=== PATIENT | male | born 1930 | race Caucasian/White ===

== ENCOUNTER 2018-12-28 18:33 | Emergency (ER) | payer MEDICARE, MEDICAID ==
[2018-12-28 18:53] VITALS: BP 172/86
--- NOTE | 2018-12-28 19:04 | EDM.PDOC ---
ED HPI GENERAL MEDICAL PROBLEM - General Chief Complaint: General Stated Complaint: ILNESS Time Seen by Provider: 12/28/18 19:04 Source of Information: Reports: Patient, EMS, Family History Limitations: Reports: No Limitations - History of Present Illness INITIAL COMMENTS - FREE TEXT/NARRATIVE: 88-year-old male, drinks frequently had several drinks at the [employer] today then was walking his dog and fell. He doesn't remember if he stumbled or got dizzy. He was having difficulty getting up so his neighbors called the ambulance and they brought him in. He now feels fine he wants to go home. He did not get injured when he fell. He does have a pacemaker that appears to be working appropriately. No fevers or chills, no nausea or vomiting. Onset: Sudden Duration: Hour(s): (Within the last hour) Associated Symptoms: Denies: Chest Pain, Cough, Fever/Chills, Nausea/Vomiting, Shortness of Breath - Related Data Allergies Allergy/AdvReac Type Severity Reaction Status Date / Time No Known Allergies Allergy Verified 04/17/16 17:18 Home Meds: Home Meds Aspirin [Halfprin] 81 mg PO DAILY 03/11/16 [History] Omeprazole 20 mg PO DAILY 03/11/16 [History] atorvaSTATin [Lipitor] 10 mg PO BEDTIME #30 tablet 03/12/16 [Rx] Amiodarone HCl [Pacerone] 200 mg PO DAILY 04/17/16 [History] Apixaban [Eliquis] 2.5 mg PO BID 04/17/16 [History] Clopidogrel [Plavix] 75 mg PO DAILY 04/17/16 [History] Cyanocobalamin (Vitamin B-12) [B-12] 1,000 mcg PO DAILY 04/17/16 [History] Nitroglycerin [IJP: Nitroglycerin] 1 tab SL ASDIRECTED 04/17/16 [History] Metoprolol Tartrate [Lopressor] 25 mg PO BID 03/31/18 [History] Past Medical History HEENT History: Reports: Hard of Hearing, Impaired Vision Other HEENT History: poor dentition Cardiovascular History: Reports: CAD, Cardiomyopathy, Heart Failure, Other (See Below) Other Cardiovascular History: Atrila flutter with rapid ventricular respnse. Vtac. Nstemi Gastrointestinal History: Reports: GERD Genitourinary History: Reports: Renal Disease Other Genitourinary History: kidney disease Psychiatric History: Reports: Anxiety - Infectious Disease History Infectious Disease History: Reports: Chicken Pox, Measles, Mumps - Past Surgical History Cardiovascular Surgical History: Reports: AICD, Carotid Stents Social & Family History - Caffeine Use Caffeine Use: Reports: None ED ROS GENERAL - Review of Systems Review Of Systems: See Below Constitutional: Denies: Fever, Chills, Malaise HEENT: Reports: No Symptoms Respiratory: Denies: Shortness of Breath Cardiovascular: Denies: Chest Pain GI/Abdominal: Denies: Abdominal Pain, Nausea, Vomiting : Reports: No Symptoms Skin: Reports: Other (Some bruising on his left elbow from a previous fall) ED EXAM, GENERAL - Physical Exam Exam: See Below Exam Limited By: No Limitations General Appearance: Alert, No Apparent Distress Eye Exam: Bilateral Eye: EOMI Head: Atraumatic Neck: Supple, Non-Tender Respiratory/Chest: No Respiratory Distress, Lungs Clear Cardiovascular: Regular Rate, Rhythm GI/Abdominal: Soft, Non-Tender Extremities: Normal Inspection, Other (Good strength of his extremities, he can lift both legs up against gravity and hold them in the air for several seconds, good grasp strength bilaterally). No: Pedal Edema Neurological: Alert, Oriented, Other (Slight slurring of speech possibly due to alcohol) Psychiatric: Normal Affect, Normal Mood Course - Vital Signs Last Recorded V/S: Last Vital Signs Temp 97 F 12/28/18 18:52 Pulse 80 12/28/18 18:52 Resp 18 12/28/18 18:52 BP 172/86 H 12/28/18 18:52 Pulse Ox 97 12/28/18 18:52 - Orders/Labs/Meds Labs: Laboratory Tests 12/28/18 12/28/18 12/28/18 Range/Units 19:03 19:03 19:03 WBC 4.1 L (4.5-11.0) K/uL RBC 3.36 L (4.30-5.90) M/uL Hgb 12.2 (12.0-15.0) g/dL Hct 36.7 L (40.0-54.0) % MCV 109 H (80-98) fL MCH 36 H (27-31) pg MCHC 33 (32-36) % Plt Count 145 L (150-400) K/uL Add Manual Diff Yes Neutrophils % (Manual) 54 (36-66) % Band Neutrophils % 3 L (5-11) % Lymphocytes % (Manual) 26 (24-44) % Monocytes % (Manual) 13 H (2-6) % Eosinophils % (Manual) 2 (2-4) % Basophils % (Manual) 2 H (0-1) % Polychromasia Sodium 135 L (140-148) mmol/L Potassium 3.6 (3.6-5.2) mmol/L Chloride 101 (100-108) mmol/L Carbon Dioxide 21 (21-32) mmol/L Anion Gap 16.6 H (5.0-14.0) mmol/L BUN 15 (7-18) mg/dL Creatinine 1.7 H (0.8-1.3) mg/dL Est Cr Clr Drug Dosing 34.02 mL/min Estimated GFR (MDRD) 38 L (>60) Glucose 91 (74-106) mg/dL Calcium 8.5 (8.5-10.1) mg/dL Total Bilirubin 0.5 (0.2-1.0) mg/dL AST 28 (15-37) U/L ALT 17 (12-78) U/L Alkaline Phosphatase 93 (46-116) U/L Troponin I < 0.017 (0.000-0.056) ng/mL Total Protein 6.7 (6.4-8.2) g/dL Albumin 3.5 (3.4-5.0) g/dL Globulin 3.2 (2.3-3.5) g/dL Albumin/Globulin Ratio 1.1 L (1.2-2.2) Ethyl Alcohol 281 mg/dL - Re-Assessments/Exams Free Text/Narrative Re-Assessment/Exam: 12/28/18 19:19 CBC CMP and EtOH were obtained. No imaging necessary. 12/28/18 19:52 EtOH was 0.28, troponin 0 and the rest of his labs generally reassuring. The patient was very talkative and had no complaints and was anxious to go home, the family is accepting of this. He wants no help, he does not want to stop drinking and he plans to continue. Departure - Departure Time of Disposition: 20:19 Disposition: Home, Self-Care 01 Clinical Impression: Alcohol intoxication Qualifiers: Complication of substance-induced condition: uncomplicated Qualified Code(s): F10.920 - Alcohol use, unspecified with intoxication, uncomplicated - Discharge Information Instructions: Alcohol Intoxication, [id number] Referrals: PCP,None [Primary Care Provider] - Forms: ED Department Discharge Care Plan Goals: Rest tonight, no further alcohol this evening and try not to consume as much alcohol at a time in the future or you may fall again and hurt yourself.
== END 2018-12-28 20:19 | disposition home or self-care (01) ==
LOC: JP.ED 18:33
DX: F10.920 Alcohol use, unspecified with intoxication, uncomplicated (principal); I25.10 Atherosclerotic heart disease of native coronary artery without angina pectoris; I50.9 Heart failure, unspecified; K21.9 Gastro-esophageal reflux disease without esophagitis; F41.9 Anxiety disorder, unspecified; Y90.8 Blood alcohol level of 240 mg/100 ml or more; Z79.82 Long term (current) use of aspirin; Z79.899 Other long term (current) drug therapy; Z79.01 Long term (current) use of anticoagulants
CPT/HCPCS: 36415; 80053; 84484; 85025; 99283; G0480

== ENCOUNTER 2019-06-28 02:24 | Inpatient (IN) | payer MEDICARE, MEDICAID ==
--- NOTE | 2019-06-28 03:17 | CRLCT ---
INDICATION: Seizure TECHNIQUE: Head CT without contrast. COMPARISON: June 11, 2019 FINDINGS: CSF spaces: Within normal limits for age. Brain parenchyma: There are nonspecific low attenuation white matter changes consistent with chronic microvascular disease. No sign of mass, hemorrhage, or midline shift. Skull base and calvarium: Mucosal thickening of the left maxillary sinus. The mastoid air cells demonstrate no acute or significant findings. The visualized orbits are grossly unremarkable. No skull fractures. There is intracranial atherosclerosis. IMPRESSION: 1. No acute findings. 2. Nonspecific white matter disease, typical of chronic microvascular disease. Please note that all CT scans at this facility use dose modulation, iterative reconstruction, and/or weight-based dosing when appropriate to reduce radiation dose to as low as reasonably achievable. Dictated by Slime Meade MD @ Jun 28 2019 3:16AM Signed by Dr. Slime Meade @ Jun 28 2019 3:16AM
--- NOTE | 2019-06-28 03:23 | EDM.PDOC ---
ED HPI GENERAL MEDICAL PROBLEM - General Chief Complaint: Neurological Problem Stated Complaint: MEDICAL [facility]IA [facility] Time Seen by Provider: 06/28/19 03:17 Source of Information: Reports: EMS, Other (assisted leaving ) History Limitations: Reports: Altered Mental Status - History of Present Illness INITIAL COMMENTS - FREE TEXT/NARRATIVE: 88 years old male patient with history of hypertension, coronary artery disease , atrial flutter with RVR, CHF, V. tach, MRI, chronic kidney disease, hyperlipidemia brought in by ambulance from his assisted living facility after he had multiple seizures. History collected from EMS and assisted living staff and his daughter. According to his daughter and assisted living he started having seizure in February of this year. He is not in any medication for it. They were told it has to do something with his pacemaker. Tonight he had almost 7 seizure starting at 1 AM. He sure lasted from 1-2 minutes. 2-4 minutes apart. He vomited once. Loss control of urine and stool. Was given 0.5 mg oral Ativan and assisted living. Then on EMS arrived he was given 10 mg IM of Versed. His O2 sats was 50% on room air and was started on 4 L oxygen to keep his sats remained 90. He dni, DNR. No report of any fall or head injury. No report of any fever or cough. No chest pain or shortness breath. Treatments TRASH COLLECTOR: Reports: EKG, IV/IO, Other Medication(s), Oxygen, See EMS Report Other Treatments TRASH COLLECTOR: IM versed - Related Data Allergies Allergy/AdvReac Type Severity Reaction Status Date / Time No Known Allergies Allergy Verified 06/28/19 02:33 Home Meds: Home Meds atorvaSTATin [Lipitor] 10 mg PO BEDTIME #30 tablet 03/12/16 [Rx] Apixaban [Eliquis] 2.5 mg PO BID 04/17/16 [History] Nitroglycerin [IJP: Nitroglycerin] 1 tab SL ASDIRECTED 04/17/16 [History] Metoprolol Tartrate [Lopressor] 25 mg PO BID 03/31/18 [History] Escitalopram [Lexapro] 10 mg PO DAILY 06/28/19 [History] LORazepam 1 tab PO BID PRN 06/28/19 [History] Past Medical History HEENT History: Reports: Hard of Hearing, Impaired Vision Other HEENT History: poor dentition Cardiovascular History: Reports: Afib, Angina, CAD, Cardiomyopathy, Heart Failure, Hypertension, NM, Pacemaker, Other (See Below) Other Cardiovascular History: Atrila flutter with rapid ventricular respnse. Vtac. Nstemi Gastrointestinal History: Reports: GERD Genitourinary History: Reports: Chronic Renal Insuffiency, Renal Disease Other Genitourinary History: kidney disease Psychiatric History: Reports: Anxiety Hematologic History: Reports: Anticoagulation Therapy - Infectious Disease History Infectious Disease History: Reports: Chicken Pox, Measles, Mumps - Past Surgical History Cardiovascular Surgical History: Reports: AICD, Coronary Artery Stent, Pacer Social & Family History - Tobacco Use Smoking Status *Q: Unknown Ever Smoked - Caffeine Use Caffeine Use: Reports: None ED ROS GENERAL - Review of Systems Review Of Systems: Unable To Obtain Reason Not Obtained: Unresponsive, altered mental status - Physical Exam Exam: See Below Exam Limited By: Altered Mental Status General Appearance: No Apparent Distress, Other (Post ictal, unresponsive) Ears: Normal External Exam, Normal Canal, Hearing Grossly Normal, Normal TMs Nose: Normal Inspection, Normal Mucosa, No Blood Throat/Mouth: Normal Inspection, Normal Lips, Normal Gums, Normal Oropharynx, No Airway Compromise Head Exam: Atraumatic, Normocephalic Neck: Normal Inspection, Supple, Non-Tender, Full Range of Motion Respiratory/Chest: No Respiratory Distress, Lungs Clear, Normal Breath Sounds, No Accessory Muscle Use, Chest Non-Tender Cardiovascular: Normal Peripheral Pulses, Regular Rate, Rhythm, No Edema, No Gallop, No JVD, No Murmur, No Rub GI/Abdominal: Normal Bowel Sounds, Soft, Non-Tender, No Organomegaly, No Distention, No Abnormal Bruit, No Mass Neuro Exam (Abbreviated): Unresponsive Extremities: Normal Inspection, Normal Range of Motion, Non-Tender, No Pedal Edema, Normal Capillary Refill Skin Exam: Warm, Dry, Intact, Normal Color, No Rash Course - Vital Signs Last Recorded V/S: Last Vital Signs Temp 35.8 C 06/28/19 02:27 Pulse 89 06/28/19 04:03 Resp 21 H 06/28/19 03:23 BP 111/61 06/28/19 04:03 Pulse Ox 99 06/28/19 03:23 - Orders/Labs/Meds Orders: Active Orders 24 hr Category Date Time Status EKG Documentation Completion [RC] ASDIRECTED Care 06/28/19 03:16 Active CULTURE BLOOD [BC] Urgent Lab 06/28/19 04:20 Ordered CULTURE BLOOD [BC] Urgent Lab 06/28/19 04:20 Ordered Piperacillin/Tazobactam [Zosyn] 4.5 gm Med 06/28/19 04:22 Ordered Sodium Chloride 0.9% [Normal Saline] 100 ml IV ONETIME Sodium Chloride 0.9% @ 125 MLS/HR (1000ml) Med 06/28/19 04:45 Ordered Sodium Chloride 0.9% [Normal Saline] 1,000 ml IV ASDIRECTED Blood Culture x2 Reflex Set [OM.PC] Urgent Oth 06/28/19 04:20 Ordered EKG 12 Lead [EK] Urgent Ther 06/28/19 03:13 Ordered Medication Orders Piperacillin Sod/Tazobactam (Sod 4.5 gm/ Sodium Chloride) 100 mls @ 100 mls/hr IV ONETIME ONE Stop: 06/28/19 05:21 Sodium Chloride (Normal Saline) 1,000 mls @ 125 mls/hr IV ASDIRECTED [facility] Labs: Laboratory Tests 06/28/19 06/28/19 06/28/19 Range/Units 03:25 03:25 03:25 WBC 11.5 H (4.5-11.0) K/uL RBC 3.13 L (4.30-5.90) M/uL Hgb 9.8 L D (12.0-15.0) g/dL Hct 30.8 L (40.0-54.0) % MCV 98 (80-98) fL MCH 31 (27-31) pg MCHC 32 (32-36) % Plt Count 195 (150-400) K/uL Neut % (Auto) 89 H (36-66) % Lymph % (Auto) 5 L (24-44) % [place] % (Auto) 6 (2-6) % Eos % (Auto) 1 L (2-4) % Baso % (Auto) 0 (0-1) % PT 10.1 (9.5-12.0) sec INR 0.93 (0.80-1.20) Sodium 134 L (140-148) mmol/L Potassium 4.3 (3.6-5.2) mmol/L Chloride 100 (100-108) mmol/L Carbon Dioxide 26 (21-32) mmol/L Anion Gap 12.3 (5.0-14.0) mmol/L BUN 25 H D (7-18) mg/dL Creatinine 1.6 H (0.8-1.3) mg/dL Est Cr Clr Drug Dosing 36.15 mL/min Estimated GFR (MDRD) 41 L (>60) Glucose 156 H (74-106) mg/dL Lactic Acid (0.4-2.0) mmol/L Calcium 8.6 (8.5-10.1) mg/dL Total Bilirubin 0.2 D (0.2-1.0) mg/dL AST 21 (15-37) U/L ALT 19 (12-78) U/L Alkaline Phosphatase 67 (46-116) U/L Ammonia (11-32) mmol/L Troponin I 0.081 H* (0.000-0.056) ng/mL Total Protein 6.3 L (6.4-8.2) g/dL Albumin 3.0 L (3.4-5.0) g/dL Globulin 3.3 (2.3-3.5) g/dL Albumin/Globulin Ratio 0.9 L (1.2-2.2) Urine Color (YELLOW) Urine Appearance (CLEAR) Urine pH (5.0-8.0) Ur Specific [place] (1.008-1.030) Urine Protein (NEGATIVE) mg/dL Urine Glucose (UA) (NEGATIVE) mg/dL Urine Ketones (NEGATIVE) mg/dL Urine Occult Blood (NEGATIVE) Urine Nitrite (NEGATIVE) Urine Bilirubin (NEGATIVE) Urine Urobilinogen (0.2-1.0) EU/dL Ur Leukocyte Esterase (NEGATIVE) Urine RBC (0-5) Urine WBC (0-5) Ur Epithelial Cells Amorphous Sediment Urine Bacteria Urine Mucus Urine Opiates Screen (NEGATIVE) Ur Oxycodone Screen (NEGATIVE) Urine Methadone Screen (NEGATIVE) Ur Propoxyphene Screen (NEGATIVE) Ur Barbiturates Screen (NEGATIVE) Ur Tricyclics Screen (NEGATIVE) Ur Phencyclidine Scrn (NEGATIVE) Ur Amphetamine Screen (NEGATIVE) U Methamphetamines Scrn (NEGATIVE) Urine MDMA Screen (NEGATIVE) U Benzodiazepines Scrn (NEGATIVE) U Cocaine Metab Screen (NEGATIVE) U Marijuana (THC) Screen (NEGATIVE) Ethyl Alcohol mg/dL 06/28/19 06/28/19 06/28/19 Range/Units 03:25 03:25 03:25 WBC (4.5-11.0) K/uL RBC (4.30-5.90) M/uL Hgb (12.0-15.0) g/dL Hct (40.0-54.0) % MCV (80-98) fL MCH (27-31) pg MCHC (32-36) % Plt Count (150-400) K/uL Neut % (Auto) (36-66) % Lymph % (Auto) (24-44) % [place] % (Auto) (2-6) % Eos % (Auto) (2-4) % Baso % (Auto) (0-1) % PT (9.5-12.0) sec INR (0.80-1.20) Sodium (140-148) mmol/L Potassium (3.6-5.2) mmol/L Chloride (100-108) mmol/L Carbon Dioxide (21-32) mmol/L Anion Gap (5.0-14.0) mmol/L BUN (7-18) mg/dL Creatinine (0.8-1.3) mg/dL Est Cr Clr Drug Dosing mL/min Estimated GFR (MDRD) (>60) Glucose (74-106) mg/dL Lactic Acid 2.6 H (0.4-2.0) mmol/L Calcium (8.5-10.1) mg/dL Total Bilirubin (0.2-1.0) mg/dL AST (15-37) U/L ALT (12-78) U/L Alkaline Phosphatase (46-116) U/L Ammonia 8 L (11-32) mmol/L Troponin I (0.000-0.056) ng/mL Total Protein (6.4-8.2) g/dL Albumin (3.4-5.0) g/dL Globulin (2.3-3.5) g/dL Albumin/Globulin Ratio (1.2-2.2) Urine Color (YELLOW) Urine Appearance (CLEAR) Urine pH (5.0-8.0) Ur Specific [place] (1.008-1.030) Urine Protein (NEGATIVE) mg/dL Urine Glucose (UA) (NEGATIVE) mg/dL Urine Ketones (NEGATIVE) mg/dL Urine Occult Blood (NEGATIVE) Urine Nitrite (NEGATIVE) Urine Bilirubin (NEGATIVE) Urine Urobilinogen (0.2-1.0) EU/dL Ur Leukocyte Esterase (NEGATIVE) Urine RBC (0-5) Urine WBC (0-5) Ur Epithelial Cells Amorphous Sediment Urine Bacteria Urine Mucus Urine Opiates Screen (NEGATIVE) Ur Oxycodone Screen (NEGATIVE) Urine Methadone Screen (NEGATIVE) Ur Propoxyphene Screen (NEGATIVE) Ur Barbiturates Screen (NEGATIVE) Ur Tricyclics Screen (NEGATIVE) Ur Phencyclidine Scrn (NEGATIVE) Ur Amphetamine Screen (NEGATIVE) U Methamphetamines Scrn (NEGATIVE) Urine MDMA Screen (NEGATIVE) U Benzodiazepines Scrn (NEGATIVE) U Cocaine Metab Screen (NEGATIVE) U Marijuana (THC) Screen (NEGATIVE) Ethyl Alcohol < 3 mg/dL 06/28/19 06/28/19 Range/Units 03:58 03:58 WBC (4.5-11.0) K/uL RBC (4.30-5.90) M/uL Hgb (12.0-15.0) g/dL Hct (40.0-54.0) % MCV (80-98) fL MCH (27-31) pg MCHC (32-36) % Plt Count (150-400) K/uL Neut % (Auto) (36-66) % Lymph % (Auto) (24-44) % [place] % (Auto) (2-6) % Eos % (Auto) (2-4) % Baso % (Auto) (0-1) % PT (9.5-12.0) sec INR (0.80-1.20) Sodium (140-148) mmol/L Potassium (3.6-5.2) mmol/L Chloride (100-108) mmol/L Carbon Dioxide (21-32) mmol/L Anion Gap (5.0-14.0) mmol/L BUN (7-18) mg/dL Creatinine (0.8-1.3) mg/dL Est Cr Clr Drug Dosing mL/min Estimated GFR (MDRD) (>60) Glucose (74-106) mg/dL Lactic Acid (0.4-2.0) mmol/L Calcium (8.5-10.1) mg/dL Total Bilirubin (0.2-1.0) mg/dL AST (15-37) U/L ALT (12-78) U/L Alkaline Phosphatase (46-116) U/L Ammonia (11-32) mmol/L Troponin I (0.000-0.056) ng/mL Total Protein (6.4-8.2) g/dL Albumin (3.4-5.0) g/dL Globulin (2.3-3.5) g/dL Albumin/Globulin Ratio (1.2-2.2) Urine Color Yellow (YELLOW) Urine Appearance Slightly cloudy A (CLEAR) Urine pH 6.5 (5.0-8.0) Ur Specific [place] 1.015 (1.008-1.030) Urine Protein Trace H (NEGATIVE) mg/dL Urine Glucose (UA) Negative (NEGATIVE) mg/dL Urine Ketones Negative (NEGATIVE) mg/dL Urine Occult Blood Trace-intact H (NEGATIVE) Urine Nitrite Negative (NEGATIVE) Urine Bilirubin Negative (NEGATIVE) Urine Urobilinogen 0.2 (0.2-1.0) EU/dL Ur Leukocyte Esterase Large H (NEGATIVE) Urine RBC 0-5 (0-5) Urine WBC 5-10 H (0-5) Ur Epithelial Cells Rare Amorphous Sediment Not seen Urine Bacteria Few Urine Mucus Not seen Urine Opiates Screen Negative (NEGATIVE) Ur Oxycodone Screen Negative (NEGATIVE) Urine Methadone Screen Negative (NEGATIVE) Ur Propoxyphene Screen Negative (NEGATIVE) Ur Barbiturates Screen Negative (NEGATIVE) Ur Tricyclics Screen Negative (NEGATIVE) Ur Phencyclidine Scrn Negative (NEGATIVE) Ur Amphetamine Screen Negative (NEGATIVE) U Methamphetamines Scrn Negative (NEGATIVE) Urine MDMA Screen Negative (NEGATIVE) U Benzodiazepines Scrn Negative (NEGATIVE) U Cocaine Metab Screen Negative (NEGATIVE) U Marijuana (THC) Screen Negative (NEGATIVE) Ethyl Alcohol mg/dL Meds: Medications Generic Name Dose Route Start Last Admin Trade Name Freq PRN Reason Stop Dose Admin Piperacillin Sod/Tazobactam 100 mls @ 100 mls/hr 06/28/19 04:22 Sod 4.5 gm/ Sodium Chloride IV 06/28/19 05:21 ONETIME ONE Sodium Chloride 1,000 mls @ 125 mls/hr 06/28/19 04:45 Normal Saline IV ASDIRECTED OMARI - Radiology Interpretation Free Text/Narrative:: Patient was seen and examined shortly after arrival. He is currently post ictal , unresponsive. Hemodynamically stable. On oxygen. Sent for stat head CT that came back with no acute abnormalities. EKG shows normal sinus rhythm. No sign of acute ischemia or arrhythmia prolonged QT interval. Lab , imaging reviewed. CT head shows no acute abnormalities. Chest x-ray shows some patchy opacity of the left upper lobe atelectasis versus infiltrate. Elevated white count was left shift. Elevated lactic acid 2.6. Urine shows trace leukocyte esterase and some 5-10 white blood cells. At this point patient was started on normal saline 1 25 mL/h, given 4.5 g of IV Zosyn for possible aspiration pneumonia. Elevated troponin, mildly elevated likely demand ischemia in the setting of acute on chronic kidney injury. No sign of acute arrhythmia or ischemia. No sign of acute coronary syndrome. It is unclear if the patient have underlying seizure disorder or his ICD was firing due to any sort of arrhythmia. Also the patient had pneumonia caused seizure or seizure then vomiting led to aspiration pneumonia. I did consulted with Dr. Leos hospitalist pets salesperson and he accepted admission for further management. Stable for admission. Departure - Departure Time of Disposition: 04:24 Disposition: Admitted As Inpatient 68 Condition: Poor Clinical Impression: Pneumonia, Elevated troponin, Seizure - Discharge Information *PRESCRIPTION DRUG MONITORING PROGRAM REVIEWED*: Not Applicable *COPY OF PRESCRIPTION DRUG MONITORING REPORT IN PATIENT BÁRBARA: Not Applicable Referrals: PCP,None [Primary Care Provider] - Forms: ED Department Discharge - My Orders Last 24 Hours: My Active Orders 06/28/19 03:13 EKG 12 Lead [EK] Urgent 06/28/19 03:16 EKG Documentation Completion [RC] ASDIRECTED 06/28/19 04:20 CULTURE BLOOD [BC] Urgent CULTURE BLOOD [BC] Urgent Blood Culture x2 Reflex Set [OM.PC] Urgent 06/28/19 04:22 Piperacillin/Tazobactam [Zosyn] 4.5 gm Sodium Chloride 0.9% [Normal Saline] 100 ml IV ONETIME 06/28/19 04:45 Sodium Chloride 0.9% @ 125 MLS/HR (1000ml) Sodium Chloride 0.9% [Normal Saline] 1,000 ml IV ASDIRECTED - Assessment/Plan Last 24 Hours: My Active Orders 06/28/19 03:13 EKG 12 Lead [EK] Urgent 06/28/19 03:16 EKG Documentation Completion [RC] ASDIRECTED 06/28/19 04:20 CULTURE BLOOD [BC] Urgent CULTURE BLOOD [BC] Urgent Blood Culture x2 Reflex Set [OM.PC] Urgent 06/28/19 04:22 Piperacillin/Tazobactam [Zosyn] 4.5 gm Sodium Chloride 0.9% [Normal Saline] 100 ml IV ONETIME 06/28/19 04:45 Sodium Chloride 0.9% @ 125 MLS/HR (1000ml) Sodium Chloride 0.9% [Normal Saline] 1,000 ml IV ASDIRECTED
--- NOTE | 2019-06-28 04:19 | CRLCR ---
Indication: Hypoxic Technique: Chest 1 view Comparison: October 02, 2017 Findings/Impression: Stable cardiac size. Left-sided AICD tip projects over the right ventricle. Normal pulmonary vasculature. Faint patchy opacity in the left upper lung may represent atelectasis or infection. No effusion, or pneumothorax. No acute osseous abnormality. Dictated by Slime Meade MD @ Jun 28 2019 4:17AM Signed by Dr. Slime Meade @ Jun 28 2019 4:17AM
[2019-06-28] MEDS ORDERED: Piperacillin/Tazobactam 4.5 GM in Sodium Chloride 0.9% 100 ML IV ONE (04:22)
[2019-06-28] MEDS: Sodium Chloride 0.9% 1,000 ML IV SCH ×4 (04:57→23:23)
[2019-06-28] MEDS ORDERED: LORazepam 0.5 MG Tab PO PRN (05:33)
[2019-06-28] MEDS ORDERED: Piperacillin/Tazobactam 4.5 GM in Sodium Chloride 0.9% 100 ML IV SCH (05:45)
[2019-06-28] MEDS ORDERED: Nitroglycerin 0.4 MG Tab.SL SL SCH (05:45)
[2019-06-28] MEDS ORDERED: Acetaminophen 325 MG Tab PO PRN (08:00)
[2019-06-28] MEDS ORDERED: Albuterol 0.083% 2.5 MG/3 ML Neb Soln NEB PRN (08:01)
[2019-06-28] MEDS: cefTRIAXone 2 GM in Sodium Chloride 0.9% 50 ML IV SCH (08:57)
--- NOTE | 2019-06-28 08:58 | PCM.PN ---
- General Info Date of Service: 06/28/19 Subjective Update: There have been no acute events since the patient was admitted. He remains very lethargic and is not responsive at this time. He is mildly tachycardic but his blood pressure is stable. He has not had any fevers. He is not currently on supplemental oxygen. Troponin level this morning has risen from 0.08 up to 0.2. Functional Status: Reports: Other (lethargic ) - Patient Data Vitals - Most Recent: Last Vital Signs Temp 37.4 C 06/28/19 05:29 Pulse 88 06/28/19 05:29 Resp 20 06/28/19 05:29 BP 121/57 L 06/28/19 05:29 Pulse Ox 95 06/28/19 05:29 Weight - Most Recent: 77.111 kg Lab Results Last 24 Hours: Laboratory Results - last 24 hr 06/28/19 06/28/19 06/28/19 Range/Units 03:25 03:25 03:25 WBC 11.5 H (4.5-11.0) K/uL RBC 3.13 L (4.30-5.90) M/uL Hgb 9.8 L D (12.0-15.0) g/dL Hct 30.8 L (40.0-54.0) % MCV 98 (80-98) fL MCH 31 (27-31) pg MCHC 32 (32-36) % Plt Count 195 (150-400) K/uL Neut % (Auto) 89 H (36-66) % Lymph % (Auto) 5 L (24-44) % [place] % (Auto) 6 (2-6) % Eos % (Auto) 1 L (2-4) % Baso % (Auto) 0 (0-1) % PT 10.1 (9.5-12.0) sec INR 0.93 (0.80-1.20) Sodium 134 L (140-148) mmol/L Potassium 4.3 (3.6-5.2) mmol/L Chloride 100 (100-108) mmol/L Carbon Dioxide 26 (21-32) mmol/L Anion Gap 12.3 (5.0-14.0) mmol/L BUN 25 H D (7-18) mg/dL Creatinine 1.6 H (0.8-1.3) mg/dL Est Cr Clr Drug Dosing 36.15 mL/min Estimated GFR (MDRD) 41 L (>60) Glucose 156 H (74-106) mg/dL Lactic Acid (0.4-2.0) mmol/L Calcium 8.6 (8.5-10.1) mg/dL Total Bilirubin 0.2 D (0.2-1.0) mg/dL AST 21 (15-37) U/L ALT 19 (12-78) U/L Alkaline Phosphatase 67 (46-116) U/L Ammonia (11-32) mmol/L Troponin I 0.081 H* (0.000-0.056) ng/mL Total Protein 6.3 L (6.4-8.2) g/dL Albumin 3.0 L (3.4-5.0) g/dL Globulin 3.3 (2.3-3.5) g/dL Albumin/Globulin Ratio 0.9 L (1.2-2.2) Urine Color (YELLOW) Urine Appearance (CLEAR) Urine pH (5.0-8.0) Ur Specific [place] (1.008-1.030) Urine Protein (NEGATIVE) mg/dL Urine Glucose (UA) (NEGATIVE) mg/dL Urine Ketones (NEGATIVE) mg/dL Urine Occult Blood (NEGATIVE) Urine Nitrite (NEGATIVE) Urine Bilirubin (NEGATIVE) Urine Urobilinogen (0.2-1.0) EU/dL Ur Leukocyte Esterase (NEGATIVE) Urine RBC (0-5) Urine WBC (0-5) Ur Epithelial Cells Amorphous Sediment Urine Bacteria Urine Mucus Urine Opiates Screen (NEGATIVE) Ur Oxycodone Screen (NEGATIVE) Urine Methadone Screen (NEGATIVE) Ur Propoxyphene Screen (NEGATIVE) Ur Barbiturates Screen (NEGATIVE) Ur Tricyclics Screen (NEGATIVE) Ur Phencyclidine Scrn (NEGATIVE) Ur Amphetamine Screen (NEGATIVE) U Methamphetamines Scrn (NEGATIVE) Urine MDMA Screen (NEGATIVE) U Benzodiazepines Scrn (NEGATIVE) U Cocaine Metab Screen (NEGATIVE) U Marijuana (THC) Screen (NEGATIVE) Ethyl Alcohol mg/dL 06/28/19 06/28/19 06/28/19 Range/Units 03:25 03:25 03:25 WBC (4.5-11.0) K/uL RBC (4.30-5.90) M/uL Hgb (12.0-15.0) g/dL Hct (40.0-54.0) % MCV (80-98) fL MCH (27-31) pg MCHC (32-36) % Plt Count (150-400) K/uL Neut % (Auto) (36-66) % Lymph % (Auto) (24-44) % Burnett % (Auto) (2-6) % Eos % (Auto) (2-4) % Baso % (Auto) (0-1) % PT (9.5-12.0) sec INR (0.80-1.20) Sodium (140-148) mmol/L Potassium (3.6-5.2) mmol/L Chloride (100-108) mmol/L Carbon Dioxide (21-32) mmol/L Anion Gap (5.0-14.0) mmol/L BUN (7-18) mg/dL Creatinine (0.8-1.3) mg/dL Est Cr Clr Drug Dosing mL/min Estimated GFR (MDRD) (>60) Glucose (74-106) mg/dL Lactic Acid 2.6 H (0.4-2.0) mmol/L Calcium (8.5-10.1) mg/dL Total Bilirubin (0.2-1.0) mg/dL AST (15-37) U/L ALT (12-78) U/L Alkaline Phosphatase (46-116) U/L Ammonia 8 L (11-32) mmol/L Troponin I (0.000-0.056) ng/mL Total Protein (6.4-8.2) g/dL Albumin (3.4-5.0) g/dL Globulin (2.3-3.5) g/dL Albumin/Globulin Ratio (1.2-2.2) Urine Color (YELLOW) Urine Appearance (CLEAR) Urine pH (5.0-8.0) Ur Specific [place] (1.008-1.030) Urine Protein (NEGATIVE) mg/dL Urine Glucose (UA) (NEGATIVE) mg/dL Urine Ketones (NEGATIVE) mg/dL Urine Occult Blood (NEGATIVE) Urine Nitrite (NEGATIVE) Urine Bilirubin (NEGATIVE) Urine Urobilinogen (0.2-1.0) EU/dL Ur Leukocyte Esterase (NEGATIVE) Urine RBC (0-5) Urine WBC (0-5) Ur Epithelial Cells Amorphous Sediment Urine Bacteria Urine Mucus Urine Opiates Screen (NEGATIVE) Ur Oxycodone Screen (NEGATIVE) Urine Methadone Screen (NEGATIVE) Ur Propoxyphene Screen (NEGATIVE) Ur Barbiturates Screen (NEGATIVE) Ur Tricyclics Screen (NEGATIVE) Ur Phencyclidine Scrn (NEGATIVE) Ur Amphetamine Screen (NEGATIVE) U Methamphetamines Scrn (NEGATIVE) Urine MDMA Screen (NEGATIVE) U Benzodiazepines Scrn (NEGATIVE) U Cocaine Metab Screen (NEGATIVE) U Marijuana (THC) Screen (NEGATIVE) Ethyl Alcohol < 3 mg/dL 06/28/19 06/28/19 Range/Units 03:58 03:58 WBC (4.5-11.0) K/uL RBC (4.30-5.90) M/uL Hgb (12.0-15.0) g/dL Hct (40.0-54.0) % MCV (80-98) fL MCH (27-31) pg MCHC (32-36) % Plt Count (150-400) K/uL Neut % (Auto) (36-66) % Lymph % (Auto) (24-44) % Burnett % (Auto) (2-6) % Eos % (Auto) (2-4) % Baso % (Auto) (0-1) % PT (9.5-12.0) sec INR (0.80-1.20) Sodium (140-148) mmol/L Potassium (3.6-5.2) mmol/L Chloride (100-108) mmol/L Carbon Dioxide (21-32) mmol/L Anion Gap (5.0-14.0) mmol/L BUN (7-18) mg/dL Creatinine (0.8-1.3) mg/dL Est Cr Clr Drug Dosing mL/min Estimated GFR (MDRD) (>60) Glucose (74-106) mg/dL Lactic Acid (0.4-2.0) mmol/L Calcium (8.5-10.1) mg/dL Total Bilirubin (0.2-1.0) mg/dL AST (15-37) U/L ALT (12-78) U/L Alkaline Phosphatase (46-116) U/L Ammonia (11-32) mmol/L Troponin I (0.000-0.056) ng/mL Total Protein (6.4-8.2) g/dL Albumin (3.4-5.0) g/dL Globulin (2.3-3.5) g/dL Albumin/Globulin Ratio (1.2-2.2) Urine Color Yellow (YELLOW) Urine Appearance Slightly cloudy A (CLEAR) Urine pH 6.5 (5.0-8.0) Ur Specific [place] 1.015 (1.008-1.030) Urine Protein Trace H (NEGATIVE) mg/dL Urine Glucose (UA) Negative (NEGATIVE) mg/dL Urine Ketones Negative (NEGATIVE) mg/dL Urine Occult Blood Trace-intact H (NEGATIVE) Urine Nitrite Negative (NEGATIVE) Urine Bilirubin Negative (NEGATIVE) Urine Urobilinogen 0.2 (0.2-1.0) EU/dL Ur Leukocyte Esterase Large H (NEGATIVE) Urine RBC 0-5 (0-5) Urine WBC 5-10 H (0-5) Ur Epithelial Cells Rare Amorphous Sediment Not seen Urine Bacteria Few Urine Mucus Not seen Urine Opiates Screen Negative (NEGATIVE) Ur Oxycodone Screen Negative (NEGATIVE) Urine Methadone Screen Negative (NEGATIVE) Ur Propoxyphene Screen Negative (NEGATIVE) Ur Barbiturates Screen Negative (NEGATIVE) Ur Tricyclics Screen Negative (NEGATIVE) Ur Phencyclidine Scrn Negative (NEGATIVE) Ur Amphetamine Screen Negative (NEGATIVE) U Methamphetamines Scrn Negative (NEGATIVE) Urine MDMA Screen Negative (NEGATIVE) U Benzodiazepines Scrn Negative (NEGATIVE) U Cocaine Metab Screen Negative (NEGATIVE) U Marijuana (THC) Screen Negative (NEGATIVE) Ethyl Alcohol mg/dL Med Orders - Current: Current Medications Acetaminophen (Tylenol) 650 mg PO Q4H PRN PRN Reason: Pain/Fever Albuterol (Proventil Neb Soln) 2.5 mg NEB Q4H PRN PRN Reason: Shortness of Breath Apixaban (Eliquis) 2.5 mg PO BID [facility] Atorvastatin Calcium (Lipitor) 10 mg PO BEDTIME [facility] Escitalopram Oxalate (Lexapro) 10 mg PO DAILY [facility] Sodium Chloride (Normal Saline) 1,000 mls @ 125 mls/hr IV ASDIRECTED [facility] Azithromycin 500 mg/ Sodium (Chloride) 250 mls @ 250 mls/hr IV Q24H [facility] Ceftriaxone Sodium 2 gm/ (Sodium Chloride) 50 mls @ 100 mls/hr IV Q24H [facility] Last Admin: 06/28/19 08:57 Dose: 100 mls/hr Levetiracetam 500 mg/ Sodium (Chloride) 105 mls @ 400 mls/hr IV ONETIME ONE Stop: 06/28/19 09:15 Last Admin: 06/28/19 08:38 Dose: 400 mls/hr Lorazepam (Ativan) 0.5 mg PO BID PRN PRN Reason: Anxiety Lorazepam (Ativan) 1 mg IVPUSH Q4H PRN PRN Reason: Seizures Metoprolol Tartrate (Lopressor) 25 mg PO BID [facility] Nitroglycerin (Nitrostat) 0.4 mg SL ASDIRECTED [facility] Discontinued Medications Piperacillin Sod/Tazobactam (Sod 4.5 gm/ Sodium Chloride) 100 mls @ 100 mls/hr IV ONETIME ONE Stop: 06/28/19 05:21 Last Admin: 06/28/19 05:00 Dose: 100 mls/hr Sodium Chloride (Normal Saline) 1,000 mls @ 125 mls/hr IV ASDIRECTED [facility] Last Admin: 06/28/19 06:27 Dose: 125 mls/hr Piperacillin Sod/Tazobactam (Sod 4.5 gm/ Sodium Chloride) 100 mls @ 100 mls/hr IV Q6H [facility] Last Admin: 06/28/19 06:08 Dose: Not Given Piperacillin/Tazobactam/ (Dextrose 3.375 gm/ Premix) 50 mls @ 100 mls/hr IV Q6H [facility] - Exam Quality Assessment: No: Supplemental Oxygen General: No Acute Distress, Lethargic. No: Alert HEENT: Pupils Equal Lungs: Normal Respiratory Effort, Crackles (left upper lung ) Cardiovascular: Regular Rate, Regular Rhythm, No Murmurs GI/Abdominal Exam: Soft, Non-Tender, No Distention Extremities: No Pedal Edema. No: Increased Warmth Skin: Warm, Dry Psy/Mental Status: No: Alert, Agitated - Problem List Review Problem List Initiated/Reviewed/Updated: Yes - My Orders Last 24 Hours: My Active Orders 06/28/19 08:00 Acetaminophen [Tylenol] 650 mg PO Q4H PRN 06/28/19 08:01 Albuterol [Proventil Neb Soln] 2.5 mg NEB Q4H PRN 06/28/19 08:02 RT Aerosol Therapy [RC] ASDIRECTED 06/28/19 09:00 TROPONIN I [CHEM] Routine cefTRIAXone [Rocephin] 2 gm Sodium Chloride 0.9% [Normal Saline] 50 ml IV Q24H levETIRAcetam [Keppra] 500 mg Sodium Chloride 0.9% [Normal Saline] 100 ml IV ONETIME 06/28/19 10:00 Azithromycin [Zithromax] 500 mg Sodium Chloride 0.9% [Normal Saline] 250 ml IV Q24H - Plan Plan:: ASSESSMENT AND PLAN - Left upper lobe pneumonia, question aspiration-patient was hypoxic on arrival but is now off supplemental oxygen. Chest x-ray did show faint upper lobe opacity. Mild crackles in this area on examination. No fevers. Unclear if this represents a pneumonia that may have triggered the event or was a result of a possible aspiration. -Empiric antibiotic coverage with ceftriaxone and azithromycin -Supplement oxygen if needed Seizures-recent history of seizures and significant seizures overnight. He has not yet received antiepileptic medication. -IV Keppra x1 this morning, plan to continue but will have to readdress whether doses given by mouth or IV this evening Coronary artery disease with previous dysrhythmias-ICD is in place. He had been on amiodarone but this is currently on hold. -Continue beta-esperanza -Continue chronic anticoagulation Stage III chronic kidney disease-creatinine is near baseline. Maintenance issues - - DVT prophylaxis -apixaban - GI prophylaxis -not indicated - Nutrition -n.p.o. until he is more awake and alert - Dumont catheter -not indicated CODE STATUS -DNR/DNI Disposition -I would anticipate discharge back to his assisted living after the hospital stay Mitch Doss M.D.
[2019-06-28] MEDS ORDERED: Piperacillin/Tazobactam/Dext 3.375 GM in Premix Bag 1 BAG IV SCH (09:00)
[2019-06-28] MEDS ORDERED: Metoprolol Tartrate 50 MG Tab PO SCH (09:00)
[2019-06-28] MEDS ORDERED: levETIRAcetam 500 MG in Sodium Chloride 0.9% 100 ML IV ONE (09:00)
[2019-06-28] MEDS: Escitalopram 10 MG Tab PO SCH (09:01)
[2019-06-28] MEDS: Apixaban 2.5 MG Tab PO SCH ×2 (09:01→20:20)
[2019-06-28] MEDS: Azithromycin 500 MG in Sodium Chloride 0.9% 250 ML IV SCH (09:44)
--- NOTE | 2019-06-28 12:16 | HP ---
CHIEF COMPLAINT: Seizure. HISTORY OF PRESENT ILLNESS: An 88-year-old who was admitted to the assisted living in [place], I believe, in March. Apparently, he had some alcohol abuse problems, was not able to take care of himself, has been there since. Apparently, he has had some suspected seizure activity. They thought it maybe secondary to implanted cardiac defibrillator and he has not been on any treatment. Apparently, he had a string of seizures tonight, was given 2 mg IV Versed in the ambulance and it did stop the seizure activity. The EMS did witness the seizure. The patient was evaluated by emergency room physician, not having any further seizure, but was quite obtunded and possibly postictal. A CT scan of the head was unremarkable. EKG showed sinus rhythm. Chest x-ray showed possible infiltrate in the left upper lobe. The patient was started on IV Zosyn. I was asked to admit the patient for further evaluation and treatment. When I arrived, the patient was obtunded and not responding to my verbal cues or touching. PAST MEDICAL HISTORY: 1. History of atrial fibrillation. It sounds like from his old reports that he has had trouble with alcoholism. 2. Essential hypertension. 3. Gastroesophageal reflux disease. 4. Chronic kidney disease. 5. Anxiety. MEDICATIONS: 1. Eliquis 2.5 mg b.i.d. 2. Lipitor 10 mg at bedtime. 3. Lexapro 10 mg daily. 4. Lorazepam 0.5 mg b.i.d. 5. Metoprolol 25 mg b.i.d. 6. Nitroglycerin p.r.n., which I do not know that he has had to take. ALLERGIES: NO KNOWN DRUG ALLERGIES. SOCIAL HISTORY: Apparently, he never smoked. FAMILY HISTORY: From old chart, denied coronary artery disease, otherwise unknown, unable to get from him. REVIEW OF SYSTEMS: Unable to really get any type of history out of him, he is not responding to verbal cues. OBJECTIVE: VITAL SIGNS: Pulse 89 to 103, blood pressure 119/63, now with 145/93, respirations 21 to 22, O2 saturation 99 on currently 1 L. He was in the EMS quite hypoxic with O2 saturations down in the 50% range, was started on 4 L per nasal cannula and did improve his O2 saturation but currently is on 1 L at 99%. GENERAL: The patient obtunded. I am really not able to get any history out of him. HEENT: Unable to look into his mouth. NECK: Supple. No adenopathy, thyromegaly, JVD, or carotid bruits. LUNGS: Coarse bilaterally. HEART: Regular right now. I did not hear any murmurs. ABDOMEN: Soft, did not appear to cause him any tenderness. No mass or organomegaly palpated. EXTREMITIES: The patient had mild edema in his legs. SKIN: Negative. NEUROLOGIC: The patient obtunded, really unable to give much from a neurologic exam. LABORATORY DATA: EKG showed sinus rhythm, ventricular rate of 96 beats per minute. No significant ST-segment elevations or depressions seen. He does have prolonged QT interval. Chest x-ray, possible infiltrate in the left upper lung, could represent atelectasis or infection. A CT scan of his brain showed no acute changes. White count 11.5, hemoglobin 9.8, platelets 195,000 with 89% neutrophils. INR was 0.93. Sodium 134, potassium 4.3, chloride 100, BUN is 25, creatinine 1.6, glucose 156. Lactic acid was elevated at 2.6. Liver functions were normal. Ammonia level was low at 8. Troponin 0.081. Urinalysis showed 5 to 10 white cells, 0 to 5 red cells. Culture is pending. Blood culture is pending. Urine drug screen was negative and alcohol level was negative. ASSESSMENT: 1. Seizure with what sounds like status epilepticus that did respond to the IV Versed. The patient is postictal and obtunded. At this time, we will admit him to the inpatient, anticipate more than two midnight stays. We will transfer his care to the hospitalist service to determine if he needs to be on what anticonvulsant. 2. Possible aspiration pneumonia. The patient already was started on IV Zosyn, which we will continue. 3. History of atrial fibrillation/flutter. Continue his anticoagulation and beta-esperanza along with his current medications. Michael Leos MD /[id number]
[2019-06-28] MEDS: Metoprolol Tartrate 25 MG Tab PO SCH (20:20)
[2019-06-28] MEDS: levETIRAcetam 250 MG Tab PO SCH (20:20)
[2019-06-28] MEDS: atorvaSTATin 10 MG Tab PO SCH (20:20)
[2019-06-28] MEDS: Melatonin 3 MG Tab PO SCH (20:20)
[2019-06-29] MEDS: LORazepam 2 MG/ML SDV IVPUSH PRN ×2 (08:08→23:03)
[2019-06-29] MEDS: Apixaban 2.5 MG Tab PO SCH ×2 (09:00→21:33)
[2019-06-29] MEDS: Escitalopram 10 MG Tab PO SCH (09:00)
[2019-06-29] MEDS: levETIRAcetam 250 MG Tab PO SCH ×2 (09:00→21:34)
[2019-06-29] MEDS: Metoprolol Tartrate 25 MG Tab PO SCH ×2 (09:01→21:34)
[2019-06-29] MEDS: Sodium Chloride 0.9% 1,000 ML IV SCH (09:04)
[2019-06-29] MEDS: cefTRIAXone 2 GM in Sodium Chloride 0.9% 50 ML IV SCH (09:04)
[2019-06-29] MEDS: Azithromycin 500 MG in Sodium Chloride 0.9% 250 ML IV SCH (09:09)
[2019-06-29] MEDS ORDERED: Haloperidol 1 MG Tab PO PRN (09:49)
--- NOTE | 2019-06-29 09:52 | PCM.PN ---
- General Info Date of Service: 06/29/19 Subjective Update: Overnight the patient had some difficulty with agitation but did settle down. He did not have any seizures last night. He has been sleepy since that time and does interact some but is pretty lethargic this morning. Vital signs have been stable. He has not needed any supplemental oxygen. Troponin level is trending down. He says that he feels well to the best of his knowledge and does not report shortness of breath or abdominal pain. I did talk to his daughter today about quality of life and goals of care. At this point they are leaning more towards hospice because of his significant decline in quality of life. They are okay with the current level of care but do not feel that more aggressive interventions would be within his previously expressed wishes. Functional Status: Reports: Other (lethargic ) - Review of Systems General: Denies: Fever - Patient Data Vitals - Most Recent: Last Vital Signs Temp 36.9 C 06/29/19 07:00 Pulse 66 06/29/19 09:01 Resp 18 06/29/19 07:00 BP 121/49 L 06/29/19 09:01 Pulse Ox 95 06/29/19 07:00 Weight - Most Recent: 77.111 kg I&O - Last 24 Hours: Intake & Output 06/28/19 06/29/19 06/29/19 22:59 06:59 14:59 Intake Total 1142 1544 300 Balance 1142 1544 300 Lab Results Last 24 Hours: Laboratory Results - last 24 hr 06/28/19 06/28/19 06/29/19 Range/Units 12:57 17:00 04:00 WBC 8.1 (4.5-11.0) K/uL RBC 2.72 L (4.30-5.90) M/uL Hgb 8.4 L (12.0-15.0) g/dL Hct 26.8 L (40.0-54.0) % MCV 99 H (80-98) fL MCH 31 (27-31) pg MCHC 31 L (32-36) % Plt Count 154 (150-400) K/uL Sodium (140-148) mmol/L Potassium (3.6-5.2) mmol/L Chloride (100-108) mmol/L Carbon Dioxide (21-32) mmol/L Anion Gap (5.0-14.0) mmol/L BUN (7-18) mg/dL Creatinine (0.8-1.3) mg/dL Est Cr Clr Drug Dosing mL/min Estimated GFR (MDRD) (>60) Glucose (74-106) mg/dL Calcium (8.5-10.1) mg/dL Troponin I 0.233 H* 0.178 H* (0.000-0.056) ng/mL 06/29/19 Range/Units 04:00 WBC (4.5-11.0) K/uL RBC (4.30-5.90) M/uL Hgb (12.0-15.0) g/dL Hct (40.0-54.0) % MCV (80-98) fL MCH (27-31) pg MCHC (32-36) % Plt Count (150-400) K/uL Sodium 139 L (140-148) mmol/L Potassium 3.7 (3.6-5.2) mmol/L Chloride 107 (100-108) mmol/L Carbon Dioxide 21 (21-32) mmol/L Anion Gap 14.7 H (5.0-14.0) mmol/L BUN 18 (7-18) mg/dL Creatinine 1.2 (0.8-1.3) mg/dL Est Cr Clr Drug Dosing 48.19 mL/min Estimated GFR (MDRD) 57 L (>60) Glucose 91 (74-106) mg/dL Calcium 8.1 L (8.5-10.1) mg/dL Troponin I (0.000-0.056) ng/mL John Results Last 24 Hours: Microbiology 06/28/19 05:36 Urine Culture - Preliminary Urine, Catheterized 06/28/19 04:45 Aerobic Blood Culture - Preliminary Blood - Arm, Left NO GROWTH AFTER 1 DAY Anaerobic Blood Culture - Preliminary NO GROWTH AFTER 1 DAY 06/28/19 04:50 Aerobic Blood Culture - Preliminary Blood - Arm, Left NO GROWTH AFTER 1 DAY Anaerobic Blood Culture - Preliminary NO GROWTH AFTER 1 DAY Med Orders - Current: Current Medications Acetaminophen (Tylenol) 650 mg PO Q4H PRN PRN Reason: Pain/Fever Albuterol (Proventil Neb Soln) 2.5 mg NEB Q4H PRN PRN Reason: Shortness of Breath Last Admin: 06/28/19 10:27 Dose: 2.5 mg Apixaban (Eliquis) 2.5 mg PO BID [facility] Last Admin: 06/29/19 09:00 Dose: 2.5 mg Atorvastatin Calcium (Lipitor) 10 mg PO BEDTIME [facility] Last Admin: 06/28/19 20:20 Dose: 10 mg Azithromycin (Zithromax) 500 mg PO DAILY [facility] Escitalopram Oxalate (Lexapro) 10 mg PO DAILY [facility] Last Admin: 06/29/19 09:00 Dose: 10 mg Haloperidol Lactate (Haldol) 2 mg IVPUSH Q4H PRN PRN Reason: Agitation Ceftriaxone Sodium 2 gm/ (Sodium Chloride) 50 mls @ 100 mls/hr IV Q24H [facility] Last Admin: 06/29/19 09:04 Dose: 100 mls/hr Levetiracetam (Keppra) 500 mg PO BID [facility] Last Admin: 06/29/19 09:00 Dose: 500 mg Lorazepam (Ativan) 0.5 mg PO BID PRN PRN Reason: Anxiety Last Admin: 06/28/19 18:39 Dose: 0.5 mg Lorazepam (Ativan) 1 mg IVPUSH Q4H PRN PRN Reason: Seizures Last Admin: 06/29/19 08:08 Dose: 1 mg Melatonin (Melatonin) 9 mg PO BEDTIME [facility] Last Admin: 06/28/19 20:20 Dose: 9 mg Metoprolol Tartrate (Lopressor) 25 mg PO BID [facility] Last Admin: 06/29/19 09:01 Dose: 25 mg Nitroglycerin (Nitrostat) 0.4 mg SL ASDIRECTED [facility] Discontinued Medications Piperacillin Sod/Tazobactam (Sod 4.5 gm/ Sodium Chloride) 100 mls @ 100 mls/hr IV ONETIME ONE Stop: 06/28/19 05:21 Last Admin: 06/28/19 05:00 Dose: 100 mls/hr Sodium Chloride (Normal Saline) 1,000 mls @ 125 mls/hr IV ASDIRECTED [facility] Last Admin: 06/28/19 06:27 Dose: 125 mls/hr Sodium Chloride (Normal Saline) 1,000 mls @ 125 mls/hr IV ASDIRECTED [facility] Last Admin: 06/29/19 09:04 Dose: 125 mls/hr Piperacillin Sod/Tazobactam (Sod 4.5 gm/ Sodium Chloride) 100 mls @ 100 mls/hr IV Q6H [facility] Last Admin: 06/28/19 06:08 Dose: Not Given Piperacillin/Tazobactam/ (Dextrose 3.375 gm/ Premix) 50 mls @ 100 mls/hr IV Q6H [facility] Azithromycin 500 mg/ Sodium (Chloride) 250 mls @ 250 mls/hr IV Q24H [facility] Last Admin: 06/29/19 09:09 Dose: 250 mls/hr Levetiracetam 500 mg/ Sodium (Chloride) 105 mls @ 400 mls/hr IV ONETIME ONE Stop: 06/28/19 09:15 Last Admin: 06/28/19 08:38 Dose: 400 mls/hr Metoprolol Tartrate (Lopressor) 25 mg PO BID [facility] Last Admin: 06/28/19 09:01 Dose: Not Given - Exam Quality Assessment: No: Supplemental Oxygen General: Alert, Cooperative, No Acute Distress, Lethargic HEENT: Pupils Equal Lungs: Clear to Auscultation, Normal Respiratory Effort Cardiovascular: Regular Rate, Regular Rhythm GI/Abdominal Exam: Soft, No Distention Extremities: No Pedal Edema. No: Increased Warmth Skin: Warm, Dry Psy/Mental Status: Alert. No: Agitated - Problem List Review Problem List Initiated/Reviewed/Updated: Yes - My Orders Last 24 Hours: My Active Orders 06/28/19 09:00 cefTRIAXone [Rocephin] 2 gm Sodium Chloride 0.9% [Normal Saline] 50 ml IV Q24H 06/28/19 21:00 Melatonin 9 mg PO BEDTIME levETIRAcetam [Keppra] 500 mg PO BID 06/28/19 22:45 Haloperidol Lactate [Haldol] 2 mg IVPUSH Q4H PRN 06/29/19 09:20 Discontinue Telemetry Monitoring [Cardiac Monitoring Discontinue] [RC] Click to Edit 06/29/19 09:21 Convert IV to Saline Lock [OM.PC] Routine 06/29/19 09:49 Haloperidol [Haldol] 1 mg PO Q4H PRN 06/29/19 Lunch Mechanical Soft Diet [DIET] 06/30/19 09:00 Azithromycin [Zithromax] 500 mg PO DAILY - Plan Plan:: ASSESSMENT AND PLAN - Left upper lobe pneumonia, question aspiration-no hypoxia and examination is essentially benign at this time. Cultures pending but negative so far. -Empiric antibiotic coverage with ceftriaxone and azithromycin -Supplement oxygen if needed Seizures-no recurrence since hospital admission. -Continue Keppra twice daily Stage I pressure ulcer - Present on admission, noted yesterday. Probable acute cystitis -urine culture growing a gram-positive cocci with identification pending. -abx as above -f/u culture Alzheimer's dementia with behavioral disturbance-intermittent difficulties with agitation both at the assisted living facility and here in the hospital. -Melatonin at bedtime -Haldol for severe agitation -Consider antipsychotic versus mood stabilizer if behaviors escalate Coronary artery disease with previous dysrhythmias-ICD is in place. He had been on amiodarone but this is currently on hold. -Continue beta-esperanza -Continue chronic anticoagulation Stage III chronic kidney disease-creatinine is near baseline. Maintenance issues - - DVT prophylaxis -apixaban - GI prophylaxis -not indicated - Nutrition -mechanical soft diet - Dumont catheter -not indicated CODE STATUS -DNR/DNI Disposition -I would anticipate discharge back to his assisted living vs [place] after the hospital stay. Family is considering hospice and would like informational meeting Sunday. Mitch Doss M.D.
[2019-06-29] MEDS: Haloperidol Lactate 5 MG/ML SDV IVPUSH PRN ×2 (11:01→21:38)
[2019-06-29] MEDS: atorvaSTATin 10 MG Tab PO SCH (21:34)
[2019-06-29] MEDS: Melatonin 3 MG Tab PO SCH (21:34)
[2019-06-30] MEDS: Apixaban 2.5 MG Tab PO SCH ×2 (08:19→21:37)
[2019-06-30] MEDS: levETIRAcetam 250 MG Tab PO SCH ×2 (08:19→21:37)
[2019-06-30] MEDS: Metoprolol Tartrate 25 MG Tab PO SCH ×2 (08:20→21:37)
[2019-06-30] MEDS: cefTRIAXone 2 GM in Sodium Chloride 0.9% 50 ML IV SCH (08:20)
[2019-06-30] MEDS: Escitalopram 10 MG Tab PO SCH (08:21)
[2019-06-30] MEDS ORDERED: Azithromycin 250 MG Tab PO SCH (09:00)
--- NOTE | 2019-06-30 14:45 | PCM.PN ---
- General Info Date of Service: 06/30/19 Subjective Update: Mr. Mascorro is more alert and interactive today. Confused because of his underlying dementia, unable to provide meaningful history concerning recent symptoms or review of systems. No further seizure activity. Vital signs have been stable and he has been afebrile. - Patient Data Vitals - Most Recent: Last Vital Signs Temp 97.7 F 06/30/19 11:58 Pulse 66 06/30/19 11:58 Resp 16 06/30/19 11:58 BP 132/65 06/30/19 11:58 Pulse Ox 100 06/30/19 11:58 Weight - Most Recent: 170 lb I&O - Last 24 Hours: Intake & Output 06/29/19 06/30/19 06/30/19 22:59 06:59 14:59 Intake Total 390 820 Balance 390 820 John Results Last 24 Hours: Microbiology 06/30/19 10:38 Clostridioides difficile (PCR) - Final Stool / Feces - Stool, Liquid 06/28/19 05:36 Urine Culture - Final Urine, Catheterized Staphylococcus Epidermidis 06/28/19 04:45 Aerobic Blood Culture - Preliminary Blood - Arm, Left NO GROWTH AFTER 2 DAYS Anaerobic Blood Culture - Preliminary NO GROWTH AFTER 2 DAYS 06/28/19 04:50 Aerobic Blood Culture - Preliminary Blood - Arm, Left NO GROWTH AFTER 2 DAYS Anaerobic Blood Culture - Preliminary NO GROWTH AFTER 2 DAYS Med Orders - Current: Current Medications Acetaminophen (Tylenol) 650 mg PO Q4H PRN PRN Reason: Pain/Fever Albuterol (Proventil Neb Soln) 2.5 mg NEB Q4H PRN PRN Reason: Shortness of Breath Last Admin: 06/28/19 10:27 Dose: 2.5 mg Apixaban (Eliquis) 2.5 mg PO BID [facility] Last Admin: 06/30/19 08:19 Dose: 2.5 mg Atorvastatin Calcium (Lipitor) 10 mg PO BEDTIME [facility] Last Admin: 06/29/19 21:34 Dose: Not Given Divalproex Sodium (Divalproex Sodium) 250 mg PO BIDMEALS [facility] Escitalopram Oxalate (Lexapro) 10 mg PO DAILY [facility] Last Admin: 06/30/19 08:21 Dose: 10 mg Haloperidol (Haldol) 1 mg PO Q4H PRN PRN Reason: Agitation Haloperidol Lactate (Haldol) 2 mg IVPUSH Q4H PRN PRN Reason: Agitation Last Admin: 06/29/19 21:38 Dose: 2 mg Ceftriaxone Sodium 2 gm/ (Sodium Chloride) 50 mls @ 100 mls/hr IV Q24H [facility] Last Admin: 06/30/19 08:20 Dose: 100 mls/hr Doxycycline Hyclate 100 mg/ (Sodium Chloride) 100 mls @ 100 mls/hr IV Q12HR [facility] Lactobacillus Rhamnosus (Culturelle) 1 cap PO BID [facility] Levetiracetam (Keppra) 500 mg PO BID [facility] Last Admin: 06/30/19 08:19 Dose: 500 mg Lorazepam (Ativan) 0.5 mg PO BID PRN PRN Reason: Anxiety Last Admin: 06/28/19 18:39 Dose: 0.5 mg Lorazepam (Ativan) 1 mg IVPUSH Q4H PRN PRN Reason: Seizures Last Admin: 06/29/19 23:03 Dose: 1 mg Melatonin (Melatonin) 9 mg PO BEDTIME [facility] Last Admin: 06/29/19 21:34 Dose: Not Given Metoprolol Tartrate (Lopressor) 25 mg PO BID [facility] Last Admin: 06/30/19 08:20 Dose: 25 mg Nitroglycerin (Nitrostat) 0.4 mg SL ASDIRECTED [facility] Discontinued Medications Azithromycin (Zithromax) 500 mg PO DAILY [facility] Last Admin: 06/30/19 08:19 Dose: 500 mg Piperacillin Sod/Tazobactam (Sod 4.5 gm/ Sodium Chloride) 100 mls @ 100 mls/hr IV ONETIME ONE Stop: 06/28/19 05:21 Last Admin: 06/28/19 05:00 Dose: 100 mls/hr Sodium Chloride (Normal Saline) 1,000 mls @ 125 mls/hr IV ASDIRECTED [facility] Last Admin: 06/28/19 06:27 Dose: 125 mls/hr Sodium Chloride (Normal Saline) 1,000 mls @ 125 mls/hr IV ASDIRECTED [facility] Last Admin: 06/29/19 09:04 Dose: 125 mls/hr Piperacillin Sod/Tazobactam (Sod 4.5 gm/ Sodium Chloride) 100 mls @ 100 mls/hr IV Q6H [facility] Last Admin: 06/28/19 06:08 Dose: Not Given Piperacillin/Tazobactam/ (Dextrose 3.375 gm/ Premix) 50 mls @ 100 mls/hr IV Q6H [facility] Azithromycin 500 mg/ Sodium (Chloride) 250 mls @ 250 mls/hr IV Q24H [facility] Last Admin: 06/29/19 09:09 Dose: 250 mls/hr Levetiracetam 500 mg/ Sodium (Chloride) 105 mls @ 400 mls/hr IV ONETIME ONE Stop: 06/28/19 09:15 Last Admin: 06/28/19 08:38 Dose: 400 mls/hr Metoprolol Tartrate (Lopressor) 25 mg PO BID [facility] Last Admin: 06/28/19 09:01 Dose: Not Given - Exam Quality Assessment: DVT Prophylaxis General: Alert, Cooperative, No Acute Distress. No: Oriented Lungs: Clear to Auscultation, Normal Respiratory Effort Cardiovascular: Regular Rate, Regular Rhythm, No Murmurs GI/Abdominal Exam: Soft, Non-Tender, No Organomegaly, No Distention Extremities: Non-Tender, No Pedal Edema - Problem List Review Problem List Initiated/Reviewed/Updated: Yes - My Orders Last 24 Hours: My Active Orders 06/30/19 14:45 Doxycycline [Vibramycin] 100 mg Sodium Chloride 0.9% [Normal Saline] 100 ml IV Q12HR Lactobacillus Rhamnosus GG [Culturelle] 1 cap PO BID 06/30/19 17:00 Divalproex Sodium 250 mg PO BIDMEALS - Plan Plan:: ASSESSMENT AND PLAN - Left upper lobe pneumonia, question aspiration-no hypoxia and examination is essentially benign at this time. Cultures pending but negative so far. -Empiric antibiotic coverage with ceftriaxone and doxycycline -Supplement oxygen if needed Seizures-no recurrence since hospital admission. -Continue Keppra twice daily Stage I pressure ulcer - Present on admission, noted yesterday. Probable acute cystitis -urine culture growing staph epi, pansensitive -abx as above Alzheimer's dementia with behavioral disturbance-intermittent difficulties with agitation both at the assisted living facility and here in the hospital. -Melatonin at bedtime -Haldol for severe agitation -Depakote 250mg po bid Coronary artery disease with previous dysrhythmias-ICD is in place. He had been on amiodarone but this is currently on hold. -Continue beta-esperanza -Continue chronic anticoagulation Stage III chronic kidney disease-creatinine is near baseline. Maintenance issues - - DVT prophylaxis -apixaban - GI prophylaxis -not indicated - Nutrition -mechanical soft diet - Dumont catheter -not indicated CODE STATUS -DNR/DNI Disposition -I would anticipate discharge back to his assisted living vs NH after the hospital stay. Family is considering hospice and had a meeting with them earlier today.
[2019-06-30] MEDS: Doxycycline 100 MG in Sodium Chloride 0.9% 100 ML IV SCH (16:34)
[2019-06-30] MEDS: Lactobacillus Rhamnosus GG (Probiotic) Cap PO SCH ×2 (16:35→21:37)
[2019-06-30] MEDS: Divalproex Sodium Delayed-Release 250 MG Tab.CR PO SCH (16:36)
[2019-06-30] MEDS: atorvaSTATin 10 MG Tab PO SCH (21:37)
[2019-06-30] MEDS: Melatonin 3 MG Tab PO SCH (21:37)
[2019-07-01] MEDS: Doxycycline 100 MG in Sodium Chloride 0.9% 100 ML IV SCH (03:17)
[2019-07-01] MEDS: Apixaban 2.5 MG Tab PO SCH ×2 (08:31→20:02)
[2019-07-01] MEDS: Lactobacillus Rhamnosus GG (Probiotic) Cap PO SCH ×2 (08:31→20:02)
[2019-07-01] MEDS: levETIRAcetam 250 MG Tab PO SCH ×2 (08:31→20:02)
[2019-07-01] MEDS: Metoprolol Tartrate 25 MG Tab PO SCH ×2 (08:31→20:02)
[2019-07-01] MEDS: Divalproex Sodium Delayed-Release 250 MG Tab.CR PO SCH ×2 (08:32→17:40)
[2019-07-01] MEDS: Escitalopram 10 MG Tab PO SCH (08:32)
[2019-07-01] MEDS: cefTRIAXone 2 GM in Sodium Chloride 0.9% 50 ML IV SCH (08:34)
--- NOTE | 2019-07-01 16:31 | PCM.PN ---
- General Info Date of Service: 07/01/19 Subjective Update: Mr. Mascorro remains confused and is unable to provide a meaningful history concerning recent symptoms or review of systems. He is more alert and interactive today with no significant agitation. No significant seizure activity during his hospitalization. - Patient Data Vitals - Most Recent: Last Vital Signs Temp 98.8 F 07/01/19 15:44 Pulse 68 07/01/19 15:44 Resp 18 07/01/19 15:44 BP 178/83 H 07/01/19 15:44 Pulse Ox 100 07/01/19 15:44 Weight - Most Recent: 170 lb I&O - Last 24 Hours: Intake & Output 07/01/19 07/01/19 07/01/19 06:59 14:59 22:59 Intake Total 100 1555 Balance 100 1555 John Results Last 24 Hours: Microbiology 06/28/19 04:50 Aerobic Blood Culture - Preliminary Blood - Arm, Left NO GROWTH AFTER 3 DAYS Anaerobic Blood Culture - Preliminary NO GROWTH AFTER 3 DAYS 06/28/19 04:45 Aerobic Blood Culture - Preliminary Blood - Arm, Left NO GROWTH AFTER 3 DAYS Anaerobic Blood Culture - Preliminary NO GROWTH AFTER 3 DAYS 06/30/19 10:38 Clostridioides difficile (PCR) - Final Stool / Feces - Stool, Liquid Med Orders - Current: Current Medications Acetaminophen (Tylenol) 650 mg PO Q4H PRN PRN Reason: Pain/Fever Albuterol (Proventil Neb Soln) 2.5 mg NEB Q4H PRN PRN Reason: Shortness of Breath Last Admin: 06/28/19 10:27 Dose: 2.5 mg Apixaban (Eliquis) 2.5 mg PO BID [facility] Last Admin: 07/01/19 08:31 Dose: 2.5 mg Atorvastatin Calcium (Lipitor) 10 mg PO BEDTIME [facility] Last Admin: 06/30/19 21:37 Dose: 10 mg Cefdinir (Omnicef) 300 mg PO BID [facility] Divalproex Sodium (Divalproex Sodium) 250 mg PO BIDMEALS [facility] Last Admin: 07/01/19 08:32 Dose: 250 mg Doxycycline Hyclate (Vibramycin) 100 mg PO Q12H [facility] Escitalopram Oxalate (Lexapro) 10 mg PO DAILY [facility] Last Admin: 07/01/19 08:32 Dose: 10 mg Haloperidol (Haldol) 1 mg PO Q4H PRN PRN Reason: Agitation Haloperidol Lactate (Haldol) 2 mg IVPUSH Q4H PRN PRN Reason: Agitation Last Admin: 06/29/19 21:38 Dose: 2 mg Lactobacillus Rhamnosus (Culturelle) 1 cap PO BID [facility] Last Admin: 07/01/19 08:31 Dose: 1 cap Levetiracetam (Keppra) 500 mg PO BID [facility] Last Admin: 07/01/19 08:31 Dose: 500 mg Lorazepam (Ativan) 0.5 mg PO BID PRN PRN Reason: Anxiety Last Admin: 06/28/19 18:39 Dose: 0.5 mg Lorazepam (Ativan) 1 mg IVPUSH Q4H PRN PRN Reason: Seizures Last Admin: 06/29/19 23:03 Dose: 1 mg Melatonin (Melatonin) 9 mg PO BEDTIME [facility] Last Admin: 06/30/19 21:37 Dose: 9 mg Metoprolol Tartrate (Lopressor) 25 mg PO BID [facility] Last Admin: 07/01/19 08:31 Dose: 25 mg Nitroglycerin (Nitrostat) 0.4 mg SL ASDIRECTED [facility] Discontinued Medications Azithromycin (Zithromax) 500 mg PO DAILY [facility] Last Admin: 06/30/19 08:19 Dose: 500 mg Piperacillin Sod/Tazobactam (Sod 4.5 gm/ Sodium Chloride) 100 mls @ 100 mls/hr IV ONETIME ONE Stop: 06/28/19 05:21 Last Admin: 06/28/19 05:00 Dose: 100 mls/hr Sodium Chloride (Normal Saline) 1,000 mls @ 125 mls/hr IV ASDIRECTED [facility] Last Admin: 06/28/19 06:27 Dose: 125 mls/hr Sodium Chloride (Normal Saline) 1,000 mls @ 125 mls/hr IV ASDIRECTED [facility] Last Admin: 06/29/19 09:04 Dose: 125 mls/hr Piperacillin Sod/Tazobactam (Sod 4.5 gm/ Sodium Chloride) 100 mls @ 100 mls/hr IV Q6H [facility] Last Admin: 06/28/19 06:08 Dose: Not Given Piperacillin/Tazobactam/ (Dextrose 3.375 gm/ Premix) 50 mls @ 100 mls/hr IV Q6H [facility] Azithromycin 500 mg/ Sodium (Chloride) 250 mls @ 250 mls/hr IV Q24H [facility] Last Admin: 06/29/19 09:09 Dose: 250 mls/hr Ceftriaxone Sodium 2 gm/ (Sodium Chloride) 50 mls @ 100 mls/hr IV Q24H [facility] Last Admin: 07/01/19 08:34 Dose: 100 mls/hr Levetiracetam 500 mg/ Sodium (Chloride) 105 mls @ 400 mls/hr IV ONETIME ONE Stop: 06/28/19 09:15 Last Admin: 06/28/19 08:38 Dose: 400 mls/hr Doxycycline Hyclate 100 mg/ (Sodium Chloride) 100 mls @ 100 mls/hr IV Q12H [facility] Last Admin: 07/01/19 03:17 Dose: 100 mls/hr Metoprolol Tartrate (Lopressor) 25 mg PO BID [facility] Last Admin: 06/28/19 09:01 Dose: Not Given - Exam Quality Assessment: DVT Prophylaxis General: Alert, Cooperative, No Acute Distress. No: Oriented Lungs: Clear to Auscultation, Normal Respiratory Effort Cardiovascular: Regular Rate, Regular Rhythm, No Murmurs GI/Abdominal Exam: Soft, Non-Tender, No Organomegaly, No Distention Extremities: Non-Tender, No Pedal Edema Sepsis Event Note - Evaluation Sepsis Screening Result: No Definite Risk - Focused Exam Vital Signs: Vital Signs Temp Pulse Pulse Resp BP BP Pulse Ox 07/01/19 15:44 98.8 F 68 18 178/83 H 100 07/01/19 12:46 98.4 F 67 18 150/74 H 100 07/01/19 08:31 71 149/75 H 07/01/19 07:51 98.8 F 71 18 149/75 H 96 Date Exam was Performed: 07/01/19 Time Exam was Performed: 16:28 - Problem List Review Problem List Initiated/Reviewed/Updated: Yes - My Orders Last 24 Hours: My Active Orders 06/30/19 17:00 Divalproex Sodium 250 mg PO BIDMEALS 07/01/19 18:00 Doxycycline [Vibramycin] 100 mg PO Q12H 07/02/19 05:11 FOLIC ACID [CHEM] AM HGB [HEMOGLOBIN] [HEME] AM VITAMIN B12 [CHEM] AM 07/02/19 09:00 Cefdinir [Omnicef] 300 mg PO BID - Plan Plan:: ASSESSMENT AND PLAN - Left upper lobe pneumonia, question aspiration-no hypoxia and examination is essentially benign at this time. Cultures pending but negative so far. Stable with no significant respiratory compromise -Discontinue IV ceftriaxone and doxycycline -Oral Omnicef and Doxycycline -Supplement oxygen if needed Seizures-no recurrence since hospital admission. -Continue Keppra twice daily Stage I pressure ulcer - Present on admission Probable acute cystitis -urine culture growing staph epi, pansensitive -abx as above Alzheimer's dementia with behavioral disturbance-agitation much improved with current therapy -Melatonin at bedtime -Haldol for severe agitation -Depakote 250mg po bid Coronary artery disease with previous dysrhythmias-ICD is in place. He had been on amiodarone but this is currently on hold. -Continue beta-esperanza -Continue chronic anticoagulation Stage III chronic kidney disease-creatinine is near baseline. Maintenance issues - - DVT prophylaxis -apixaban - GI prophylaxis -not indicated - Nutrition -mechanical soft diet - Dumont catheter -not indicated CODE STATUS -DNR/DNI Disposition -I would anticipate discharge back to his assisted living vs NH after the hospital stay. Family is considering hospice and had a meeting with them earlier today.
[2019-07-01] MEDS: Doxycycline 100 MG Cap PO SCH (17:40)
[2019-07-01] MEDS: Melatonin 3 MG Tab PO SCH (20:02)
[2019-07-01] MEDS: atorvaSTATin 10 MG Tab PO SCH (20:02)
[2019-07-02] MEDS: Doxycycline 100 MG Cap PO SCH ×2 (05:38→17:00)
[2019-07-02] MEDS: Divalproex Sodium Delayed-Release 250 MG Tab.CR PO SCH ×2 (08:02→17:00)
[2019-07-02] MEDS: levETIRAcetam 250 MG Tab PO SCH ×2 (08:03→20:08)
[2019-07-02] MEDS: Escitalopram 10 MG Tab PO SCH (08:03)
[2019-07-02] MEDS: Apixaban 2.5 MG Tab PO SCH ×2 (08:03→20:08)
[2019-07-02] MEDS: Metoprolol Tartrate 25 MG Tab PO SCH ×2 (08:03→20:10)
[2019-07-02] MEDS: Lactobacillus Rhamnosus GG (Probiotic) Cap PO SCH ×2 (08:03→20:08)
[2019-07-02] MEDS: Cefdinir 300 MG Cap PO SCH ×2 (08:04→20:09)
[2019-07-02] MEDS: Folic Acid 1 MG Tab PO SCH (11:02)
--- NOTE | 2019-07-02 14:03 | PCM.PN ---
- General Info Date of Service: 07/02/19 Subjective Update: Mr. Mascorro has been very stable over the last 24 hours, ongoing confusion, no significant agitation for the past several days. Vital signs have remained stable and he has been afebrile. Has of his dementia he is unable to provide a meaningful history concerning recent symptoms or review of systems. - Patient Data Vitals - Most Recent: Last Vital Signs Temp 98 F 07/02/19 12: Pulse 68 07/02/19 12: Resp 16 07/02/19 12:19 BP 165/74 H 07/02/19 12:19 Pulse Ox 100 07/02/19 12:19 Weight - Most Recent: 170 lb I&O - Last 24 Hours: Intake & Output 07/01/19 07/02/19 07/02/19 22:59 06:59 14:59 Intake Total 660 1220 Balance 660 1220 Lab Results Last 24 Hours: Laboratory Results - last 24 hr 07/02/19 07/02/19 Range/Units 05:19 05:19 Hgb 8.7 L (12.0-15.0) g/dL Vitamin B12 326 (193-986) pg/ml Folate 2.6 L (8.6-58.9) ng/ml John Results Last 24 Hours: Microbiology 06/28/19 04:45 Aerobic Blood Culture - Preliminary Blood - Arm, Left NO GROWTH AFTER 4 DAYS Anaerobic Blood Culture - Preliminary NO GROWTH AFTER 4 DAYS 06/28/19 04:50 Aerobic Blood Culture - Preliminary Blood - Arm, Left NO GROWTH AFTER 4 DAYS Anaerobic Blood Culture - Preliminary NO GROWTH AFTER 4 DAYS Med Orders - Current: Current Medications Acetaminophen (Tylenol) 650 mg PO Q4H PRN PRN Reason: Pain/Fever Albuterol (Proventil Neb Soln) 2.5 mg NEB Q4H PRN PRN Reason: Shortness of Breath Last Admin: 06/28/19 10:27 Dose: 2.5 mg Apixaban (Eliquis) 2.5 mg PO BID [facility] Last Admin: 07/02/19 08:03 Dose: 2.5 mg Atorvastatin Calcium (Lipitor) 10 mg PO BEDTIME [facility] Last Admin: 07/01/19 20:02 Dose: 10 mg Cefdinir (Omnicef) 300 mg PO BID [facility] Last Admin: 07/02/19 08:04 Dose: 300 mg Divalproex Sodium (Divalproex Sodium) 250 mg PO BIDMEALS [facility] Last Admin: 07/02/19 08:02 Dose: 250 mg Doxycycline Hyclate (Vibramycin) 100 mg PO Q12H [facility] Last Admin: 07/02/19 05:38 Dose: 100 mg Escitalopram Oxalate (Lexapro) 10 mg PO DAILY [facility] Last Admin: 07/02/19 08:03 Dose: 10 mg Folic Acid (Folic Acid) 1 mg PO DAILY [facility] Last Admin: 07/02/19 11:02 Dose: 1 mg Haloperidol (Haldol) 1 mg PO Q4H PRN PRN Reason: Agitation Haloperidol Lactate (Haldol) 2 mg IVPUSH Q4H PRN PRN Reason: Agitation Last Admin: 06/29/19 21:38 Dose: 2 mg Lactobacillus Rhamnosus (Culturelle) 1 cap PO BID [facility] Last Admin: 07/02/19 08:03 Dose: 1 cap Levetiracetam (Keppra) 500 mg PO BID [facility] Last Admin: 07/02/19 08:03 Dose: 500 mg Lorazepam (Ativan) 0.5 mg PO BID PRN PRN Reason: Anxiety Last Admin: 06/28/19 18:39 Dose: 0.5 mg Lorazepam (Ativan) 1 mg IVPUSH Q4H PRN PRN Reason: Seizures Last Admin: 06/29/19 23:03 Dose: 1 mg Melatonin (Melatonin) 9 mg PO BEDTIME [facility] Last Admin: 07/01/19 20:02 Dose: 9 mg Metoprolol Tartrate (Lopressor) 25 mg PO BID [facility] Last Admin: 07/02/19 08:03 Dose: 25 mg Nitroglycerin (Nitrostat) 0.4 mg SL ASDIRECTED [facility] Discontinued Medications Azithromycin (Zithromax) 500 mg PO DAILY [facility] Last Admin: 06/30/19 08:19 Dose: 500 mg Piperacillin Sod/Tazobactam (Sod 4.5 gm/ Sodium Chloride) 100 mls @ 100 mls/hr IV ONETIME ONE Stop: 06/28/19 05:21 Last Admin: 06/28/19 05:00 Dose: 100 mls/hr Sodium Chloride (Normal Saline) 1,000 mls @ 125 mls/hr IV ASDIRECTED [facility] Last Admin: 06/28/19 06:27 Dose: 125 mls/hr Sodium Chloride (Normal Saline) 1,000 mls @ 125 mls/hr IV ASDIRECTED [facility] Last Admin: 06/29/19 09:04 Dose: 125 mls/hr Piperacillin Sod/Tazobactam (Sod 4.5 gm/ Sodium Chloride) 100 mls @ 100 mls/hr IV Q6H [facility] Last Admin: 06/28/19 06:08 Dose: Not Given Piperacillin/Tazobactam/ (Dextrose 3.375 gm/ Premix) 50 mls @ 100 mls/hr IV Q6H [facility] Azithromycin 500 mg/ Sodium (Chloride) 250 mls @ 250 mls/hr IV Q24H [facility] Last Admin: 06/29/19 09:09 Dose: 250 mls/hr Ceftriaxone Sodium 2 gm/ (Sodium Chloride) 50 mls @ 100 mls/hr IV Q24H [facility] Last Admin: 07/01/19 08:34 Dose: 100 mls/hr Levetiracetam 500 mg/ Sodium (Chloride) 105 mls @ 400 mls/hr IV ONETIME ONE Stop: 06/28/19 09:15 Last Admin: 06/28/19 08:38 Dose: 400 mls/hr Doxycycline Hyclate 100 mg/ (Sodium Chloride) 100 mls @ 100 mls/hr IV Q12H [facility] Last Admin: 07/01/19 03:17 Dose: 100 mls/hr Metoprolol Tartrate (Lopressor) 25 mg PO BID [facility] Last Admin: 06/28/19 09:01 Dose: Not Given - Exam Quality Assessment: DVT Prophylaxis General: Alert, Oriented, Cooperative, No Acute Distress Lungs: Clear to Auscultation, Normal Respiratory Effort Cardiovascular: Regular Rate, Regular Rhythm, No Murmurs GI/Abdominal Exam: Soft, Non-Tender, No Organomegaly, No Distention Extremities: Non-Tender, No Pedal Edema Sepsis Event Note - Evaluation Sepsis Screening Result: No Definite Risk - Focused Exam Vital Signs: Vital Signs Temp Pulse Pulse Resp BP BP Pulse Ox 07/02/19 12:19 98 F 68 16 165/74 H 100 07/02/19 08:03 76 146/64 H 07/02/19 07:57 98.2 F 73 16 146/64 H 95 07/02/19 03:00 99.0 F 75 18 161/69 H 99 Date Exam was Performed: 07/02/19 Time Exam was Performed: 13:57 - Problem List Review Problem List Initiated/Reviewed/Updated: Yes - My Orders Last 24 Hours: My Active Orders 07/01/19 18:00 Doxycycline [Vibramycin] 100 mg PO Q12H 07/02/19 09:00 Cefdinir [Omnicef] 300 mg PO BID Folic Acid 1 mg PO DAILY - Plan Plan:: ASSESSMENT AND PLAN - Left upper lobe pneumonia, question aspiration-no hypoxia and examination is essentially benign at this time. Cultures negative so far. Stable with no significant respiratory compromise -Oral Omnicef and Doxycycline -Supplement oxygen if needed Seizures-no recurrence since hospital admission. -Continue Keppra twice daily Stage I pressure ulcer - Present on admission Probable acute cystitis -urine culture growing staph epi, pansensitive -abx as above Alzheimer's dementia with behavioral disturbance-agitation resolved -Melatonin at bedtime -Haldol for severe agitation -Depakote 250mg po bid Coronary artery disease with previous dysrhythmias-ICD is in place. He had been on amiodarone but this is currently on hold. -Continue beta-esperanza -Continue chronic anticoagulation Macrocytic anemia-folate level found to be low -Folic acid daily -Check hemoglobin in 2 weeks Stage III chronic kidney disease-creatinine is near baseline. Maintenance issues - - DVT prophylaxis -apixaban - GI prophylaxis -not indicated - Nutrition -mechanical soft diet - Dumont catheter -not indicated CODE STATUS -DNR/DNI Disposition -I would anticipate discharge to [facility] tomorrow
[2019-07-02] MEDS: Melatonin 3 MG Tab PO SCH (20:09)
[2019-07-02] MEDS: atorvaSTATin 10 MG Tab PO SCH (20:10)
[2019-07-03] MEDS: Doxycycline 100 MG Cap PO SCH (06:00)
[2019-07-03] MEDS: Divalproex Sodium Delayed-Release 250 MG Tab.CR PO SCH (07:42)
[2019-07-03 07:55] VITALS: BP 132/69
[2019-07-03] MEDS: Lactobacillus Rhamnosus GG (Probiotic) Cap PO SCH (08:06)
[2019-07-03] MEDS: levETIRAcetam 250 MG Tab PO SCH (08:07)
[2019-07-03] MEDS: Folic Acid 1 MG Tab PO SCH (08:07)
[2019-07-03] MEDS: Escitalopram 10 MG Tab PO SCH (08:07)
[2019-07-03] MEDS: Apixaban 2.5 MG Tab PO SCH (08:07)
[2019-07-03] MEDS: Metoprolol Tartrate 25 MG Tab PO SCH (08:08)
[2019-07-03 08:09] VITALS: PULSE 72
[2019-07-03] MEDS: Cefdinir 300 MG Cap PO SCH (08:09)
--- NOTE | 2019-07-03 09:28 | PCM.DCSUM1 ---
Discharge Summary - Hospital Course Brief History: Mr. Saunders is an 88-year-old gentleman who was admitted through the emergency department after experiencing seizures and found to have left lung pneumonia. - Discharge Data Discharge Date: 07/03/19 Discharge Disposition: Home, Self-Care 01 Condition: Stable - Referral to Home Health Primary Care Physician: PCP None - Discharge Diagnosis/Problem(s) (1) UTI (urinary tract infection) SNOMED Code(s): 80264946 ICD Code: N39.0 - URINARY TRACT INFECTION, SITE NOT SPECIFIED Status: Acute Current Visit: Yes (2) Dementia SNOMED Code(s): 67410162 ICD Code: F03.90 - UNSPECIFIED DEMENTIA WITHOUT BEHAVIORAL DISTURBANCE Status: Acute Current Visit: Yes (3) Pneumonia SNOMED Code(s): 088324559 ICD Code: J18.9 - PNEUMONIA, UNSPECIFIED ORGANISM Status: Acute Current Visit: Yes (4) Elevated troponin SNOMED Code(s): 139270089, 660619520, 454055220 ICD Code: R79.89 - OTHER SPECIFIED ABNORMAL FINDINGS OF BLOOD CHEMISTRY Status: Acute Current Visit: Yes (5) Seizure SNOMED Code(s): 79099543 ICD Code: R56.9 - UNSPECIFIED CONVULSIONS Status: Acute Current Visit: Yes (6) CKD (chronic kidney disease) stage 3, GFR 30-59 ml/min SNOMED Code(s): 929324490 ICD Code: N18.3 - CHRONIC KIDNEY DISEASE, STAGE 3 (MODERATE) Status: Chronic Current Visit: No (7) Macrocytic anemia SNOMED Code(s): 97294332 ICD Code: D53.9 - NUTRITIONAL ANEMIA, UNSPECIFIED Status: Acute Current Visit: Yes (8) Folic acid deficiency SNOMED Code(s): 784805740 ICD Code: E53.8 - DEFICIENCY OF OTHER SPECIFIED B GROUP VITAMINS Status: Acute Current Visit: Yes (9) LAURITA (acute kidney injury) SNOMED Code(s): 15010590, 37502337 ICD Code: N17.9 - ACUTE KIDNEY FAILURE, UNSPECIFIED Status: Acute Current Visit: Yes - Patient Summary/Data Hospital Course: Mr. Saunders is an 88-year-old gentleman who was admitted through the emergency department after experiencing seizures at his assisted living facility as well as in the ambulance on the way to the emergency department. There has been some previous question about seizure activity, no history of recent head injury or CVA. He was given IV Versed in the ambulance and had no further seizure activity in the emergency department or during his hospital stay. There are also had been recent history at the assisted living facility of progressive dementia and agitation. Patient was post ictal while in the emergency department and unable to provide meaningful history concerning symptoms or review of systems. On evaluation in the emergency department CT scan of the head was unremarkable except for age-related changes. X-ray showed evidence of a left lung infiltrate with modest elevation in white blood cell count. Urinalysis showed evidence of probable urinary tract infection. Creatinine was elevated from baseline consistent with acute kidney injury. Troponin was found to be elevated and thought to be secondary to demand ischemia in the setting of seizures and underlying infection. Blood and urine cultures were obtained while in the emergency department and he was started on broad-spectrum IV antibiotic therapy with Zosyn. On admission he was given IV fluids for hydration. He was started on Depakote 250 mg twice daily as well as melatonin at night. With these interventions he had no significant agitation noted throughout his hospital stay. Over the first few days of hospitalization he gradually became more alert and interactive, but remained confused consistent with his underlying dementia. Blood cultures remain negative, urine culture grew out staph epidermidis was was sensitive to all medications. Antibiotic therapy was converted to ceftriaxone and doxycycline. Prior to discharge he was converted to oral antibiotic therapy with doxycycline and Omnicef. White blood cell count normalized he was afebrile for the major of his hospital stay. He was noted to have mild macrocytic anemia, and B12 level was found to be normal, folate level was low and he was started on daily supplement of folic acid. Follow-up CBC and folate level will be obtained in 2 weeks. While hospitalized family did meet with hospice, hospice staff the is not a candidate at this time for hospice care. He was started on Keppra twice daily at the time of admission and showed no further evidence of seizure activity during hospitalization. [facility] and occupational therapy. Activity will be as tolerated and he will continue his usual diet. - Patient Instructions Diet: Usual Diet as Tolerated Activity: As Tolerated Other/Special Instructions: FU lab 2 weeks; folate, CBC. Daily PT and OT - Discharge Plan *PRESCRIPTION DRUG MONITORING PROGRAM REVIEWED*: Not Applicable *COPY OF PRESCRIPTION DRUG MONITORING REPORT IN PATIENT BÁRBARA: Not Applicable Prescriptions/Med Rec: Cefdinir [Omnicef] 300 mg PO BID #4 cap Divalproex Sodium 250 mg PO BIDMEALS #60 tab.cr Doxycycline [Vibramycin] 100 mg PO Q12H #4 cap Folic Acid 1 mg PO DAILY #30 tablet Haloperidol [Haldol] 1 mg PO Q4H PRN #30 tablet PRN Reason: Agitation Lactobacillus Rhamnosus GG [Culturelle] 1 cap PO BID #60 cap Melatonin 9 mg PO BEDTIME #100 tablet Home Medications: Home Meds atorvaSTATin [Lipitor] 10 mg PO BEDTIME #30 tablet 03/12/16 [Rx] Apixaban [Eliquis] 2.5 mg PO BID 04/17/16 [History] Nitroglycerin [IJP: Nitroglycerin] 1 tab SL ASDIRECTED 04/17/16 [History] Metoprolol Tartrate [Lopressor] 25 mg PO BID 03/31/18 [History] Escitalopram [Lexapro] 10 mg PO DAILY 06/28/19 [History] Cefdinir [Omnicef] 300 mg PO BID #4 cap 07/03/19 [Rx] Divalproex Sodium 250 mg PO BIDMEALS #60 tab.cr 07/03/19 [Rx] Doxycycline [Vibramycin] 100 mg PO Q12H #4 cap 07/03/19 [Rx] Folic Acid 1 mg PO DAILY #30 tablet 07/03/19 [Rx] Haloperidol [Haldol] 1 mg PO Q4H PRN #30 tablet 07/03/19 [Rx] Lactobacillus Rhamnosus GG [Culturelle] 1 cap PO BID #60 cap 07/03/19 [Rx] Melatonin 9 mg PO BEDTIME #100 tablet 07/03/19 [Rx] - Discharge Summary/Plan Comment DC Time >30 min.: No - Patient Data Vitals - Most Recent: Last Vital Signs Temp 98.4 F 07/03/19 07:00 Pulse 72 07/03/19 08:08 Resp 18 07/03/19 07:00 BP 132/69 07/03/19 08:08 Pulse Ox 98 07/03/19 07:00 Weight - Most Recent: 170 lb I&O - Last 24 hours: Intake & Output 07/02/19 07/03/19 07/03/19 22:59 06:59 14:59 Intake Total 360 Balance 360 RADHA Results - Last 24 hrs: Microbiology 06/28/19 04:45 Aerobic Blood Culture - Final Blood - Arm, Left NO GROWTH AFTER 5 DAYS Anaerobic Blood Culture - Final NO GROWTH AFTER 5 DAYS 06/28/19 04:50 Aerobic Blood Culture - Final Blood - Arm, Left NO GROWTH AFTER 5 DAYS Anaerobic Blood Culture - Final NO GROWTH AFTER 5 DAYS Med Orders - Current: Current Medications Acetaminophen (Tylenol) 650 mg PO Q4H PRN PRN Reason: Pain/Fever Albuterol (Proventil Neb Soln) 2.5 mg NEB Q4H PRN PRN Reason: Shortness of Breath Last Admin: 06/28/19 10:27 Dose: 2.5 mg Apixaban (Eliquis) 2.5 mg PO BID [facility] Last Admin: 07/03/19 08:07 Dose: 2.5 mg Atorvastatin Calcium (Lipitor) 10 mg PO BEDTIME [facility] Last Admin: 07/02/19 20:10 Dose: 10 mg Cefdinir (Omnicef) 300 mg PO BID [facility] Last Admin: 07/03/19 08:09 Dose: 300 mg Divalproex Sodium (Divalproex Sodium) 250 mg PO BIDMEALS [facility] Last Admin: 07/03/19 07:42 Dose: 250 mg Doxycycline Hyclate (Vibramycin) 100 mg PO Q12H [facility] Last Admin: 07/03/19 06:00 Dose: 100 mg Escitalopram Oxalate (Lexapro) 10 mg PO DAILY [facility] Last Admin: 07/03/19 08:07 Dose: 10 mg Folic Acid (Folic Acid) 1 mg PO DAILY [facility] Last Admin: 07/03/19 08:07 Dose: 1 mg Haloperidol (Haldol) 1 mg PO Q4H PRN PRN Reason: Agitation Haloperidol Lactate (Haldol) 2 mg IVPUSH Q4H PRN PRN Reason: Agitation Last Admin: 06/29/19 21:38 Dose: 2 mg Lactobacillus Rhamnosus (Culturelle) 1 cap PO BID [facility] Last Admin: 07/03/19 08:06 Dose: 1 cap Levetiracetam (Keppra) 500 mg PO BID [facility] Last Admin: 07/03/19 08:07 Dose: 500 mg Lorazepam (Ativan) 0.5 mg PO BID PRN PRN Reason: Anxiety Last Admin: 06/28/19 18:39 Dose: 0.5 mg Lorazepam (Ativan) 1 mg IVPUSH Q4H PRN PRN Reason: Seizures Last Admin: 06/29/19 23:03 Dose: 1 mg Melatonin (Melatonin) 9 mg PO BEDTIME [facility] Last Admin: 07/02/19 20:09 Dose: 9 mg Metoprolol Tartrate (Lopressor) 25 mg PO BID [facility] Last Admin: 07/03/19 08:08 Dose: 25 mg Nitroglycerin (Nitrostat) 0.4 mg SL ASDIRECTED [facility] Discontinued Medications Azithromycin (Zithromax) 500 mg PO DAILY [facility] Last Admin: 06/30/19 08:19 Dose: 500 mg Piperacillin Sod/Tazobactam (Sod 4.5 gm/ Sodium Chloride) 100 mls @ 100 mls/hr IV ONETIME ONE Stop: 06/28/19 05:21 Last Admin: 06/28/19 05:00 Dose: 100 mls/hr Sodium Chloride (Normal Saline) 1,000 mls @ 125 mls/hr IV ASDIRECTED [facility] Last Admin: 06/28/19 06:27 Dose: 125 mls/hr Sodium Chloride (Normal Saline) 1,000 mls @ 125 mls/hr IV ASDIRECTED [facility] Last Admin: 06/29/19 09:04 Dose: 125 mls/hr Piperacillin Sod/Tazobactam (Sod 4.5 gm/ Sodium Chloride) 100 mls @ 100 mls/hr IV Q6H [facility] Last Admin: 06/28/19 06:08 Dose: Not Given Piperacillin/Tazobactam/ (Dextrose 3.375 gm/ Premix) 50 mls @ 100 mls/hr IV Q6H [facility] Azithromycin 500 mg/ Sodium (Chloride) 250 mls @ 250 mls/hr IV Q24H [facility] Last Admin: 06/29/19 09:09 Dose: 250 mls/hr Ceftriaxone Sodium 2 gm/ (Sodium Chloride) 50 mls @ 100 mls/hr IV Q24H [facility] Last Admin: 07/01/19 08:34 Dose: 100 mls/hr Levetiracetam 500 mg/ Sodium (Chloride) 105 mls @ 400 mls/hr IV ONETIME ONE Stop: 06/28/19 09:15 Last Admin: 06/28/19 08:38 Dose: 400 mls/hr Doxycycline Hyclate 100 mg/ (Sodium Chloride) 100 mls @ 100 mls/hr IV Q12H [facility] Last Admin: 07/01/19 03:17 Dose: 100 mls/hr Metoprolol Tartrate (Lopressor) 25 mg PO BID [facility] Last Admin: 06/28/19 09:01 Dose: Not Given - Exam Quality Assessment: Reports: DVT Prophylaxis General: Reports: Alert, Cooperative, No Acute Distress. Denies: Oriented Lungs: Reports: Clear to Auscultation, Normal Respiratory Effort Cardiovascular: Reports: Regular Rate, Regular Rhythm, No Murmurs GI/Abdominal Exam: Soft, Non-Tender, No Organomegaly, No Distention
== END 2019-07-03 11:15 | disposition home or self-care (01) | DRG 178 ==
LOC: JP.ED 02:24 → JP.ICU 05:29 → JP.MS 16:27
PROVIDERS: ADMIT Family Medicine; ATTEND Hospitalist
DX: J69.0 Pneumonitis due to inhalation of food and vomit (principal); N39.0 Urinary tract infection, site not specified; R79.89 Other specified abnormal findings of blood chemistry; N17.9 Acute kidney failure, unspecified; I24.8 Other forms of acute ischemic heart disease; I42.9 Cardiomyopathy, unspecified; I25.119 Atherosclerotic heart disease of native coronary artery with unspecified angina pectoris; I48.92 Unspecified atrial flutter; N18.9 Chronic kidney disease, unspecified; I13.0 Hypertensive heart and chronic kidney disease with heart failure and stage 1 through stage 4 chronic kidney disease, or unspecified chronic kidney disease; F02.81 Dementia in other diseases classified elsewhere, unspecified severity, with behavioral disturbance; H91.90 Unspecified hearing loss, unspecified ear; I50.9 Heart failure, unspecified; Z66 Do not resuscitate; R74.8 Abnormal levels of other serum enzymes; N18.3 Chronic kidney disease, stage 3 (moderate); D53.9 Nutritional anemia, unspecified; L89.91 Pressure ulcer of unspecified site, stage 1; G30.9 Alzheimer's disease, unspecified; E53.8 Deficiency of other specified B group vitamins; B95.7 Other staphylococcus as the cause of diseases classified elsewhere; I48.91 Unspecified atrial fibrillation; K21.9 Gastro-esophageal reflux disease without esophagitis; F41.9 Anxiety disorder, unspecified; F10.10 Alcohol abuse, uncomplicated; H54.7 Unspecified visual loss; I25.10 Atherosclerotic heart disease of native coronary artery without angina pectoris; Z95.5 Presence of coronary angioplasty implant and graft; I25.2 Old myocardial infarction; Z79.899 Other long term (current) drug therapy; Z95.810 Presence of automatic (implantable) cardiac defibrillator; Z88.6 Allergy status to analgesic agent; Z88.8 Allergy status to other drugs, medicaments and biological substances; Z79.01 Long term (current) use of anticoagulants
CPT/HCPCS: 36415; 70450; 71045; 80053; 80305; 81001; 82140; 83605; 84484; 85025; 85610; 87040 ×2; 87088; 93005; 93010; 99285 ×2; G0480; J2543; J7030; J7050; 80048; 82607; 82746; 85018; 85027; 87086; 87186; 87493; 94640; A9270-GY; J0456; J0696; J1630; J1953; J2060; J3490